=== PATIENT | male | born 1970 | race Caucasian/White ===

== ENCOUNTER 2024-04-25 12:49 | Inpatient (IN) | payer BC, MEDICAID ==
[~2024-04-25] VITALS: Ht 172.7 cm; Wt 77.6 kg
[2024-04-25 13:15] LABS: BASOPHILS # (AUTO) 0.04 K/uL (0.00-0.20); BASOPHILS % (AUTO) 0.7 % (0.0-5.0); EOSINOPHILS # (AUTO) 0.32 K/uL (0.00-0.70); EOSINOPHILS % (AUTO) 5.9 % (0.0-8.0); HEMATOCRIT 44.5 % (42-54); IMMATURE GRANULOCYTE ABSOLUTE 0.01 K/uL (0-1); LYMPHOCYTES # (AUTO) 1.1 K/uL (1.0-4.8); LYMPHOCYTES % (AUTO) 19.3 % (21.0-51.0); MEAN CORPUSCULAR HEMOGLOBIN 28.5 pg (27.0-33.0); MEAN CORPUSCULAR HGB CONC 32.4 g/dL (32.0-36.0); MEAN CORPUSCULAR VOLUME 88.1 fL (79-99); MONOCYTES # (AUTO) 0.4 K/uL (0.1-1.0); MONOCYTES % (AUTO) 7.9 % (3.0-13.0); NEUTROPHILS # (AUTO) 3.6 K/uL (1.8-7.7); PLATELET COUNT (AUTO) 176 K/uL (130-400); RED BLOOD CELL COUNT(AUTO) 5.05 MIL/uL (4.50-6.20); RED CELL DISTRIBUTION WIDTH 14.4 % (11.0-15.5); WHITE BLOOD COUNT (AUTO) 5.5 K/uL (4.8-10.8)
[2024-04-25] MEDS: Solu-medROL 40MG VIAL IVP ONE (13:17)
--- NOTE | 2024-04-25 13:20 | ERN ---
ED Note History of Present Illness Stated Complaint: SHORTNESS OF BREATH Chief Complaint: Shortness of Breath Dictation: 53-year-old male presents to the ED for evaluation of shortness a breath onset 1 week ago. Patient states he has been having difficulty swallowing and voice sounds hoarse. Patient states he has been cleaning out his parents home where there is a lot of dust. Past Medical History Past Medical History: CHF, High Cholesterol, Heart Disease, Hypertension, Other Additional Past Medical Hx: ANGIOEDEMA Surgical History: Other Surgical History Other: LEG AND ARM SX Review of System Dictation Constitutional: Negative for fever,chills, and weight loss Eyes: Negative for injury, pain,redness, and discharge ENT: Positive Difficulty swallowing Negative for injury,pain or swelling Cardiovascular: Negative for chest pain, palpitations, and edema Respiratory: Positive for shortness of breath, negative for cough, and wheezing, Abdomen/GI: Negative for abdominal pain, nausea, vomiting, diarrhea, and constipation Back: Negative for injury and pain : Negative for injury, bleeding and discharge MS/Extremity: Negative for injury and deformity Skin: Negative for rash, and discoloration Neuro: Negative for headache, weakness, numbness, tingling, and seizure Psych: Negative for suicide ideation, homicidal ideation, and hallucinations Initial Vital Sign VS Vital Signs Date Time Temp Pulse Resp B/P (MAP) Pulse Ox O2 Delivery O2 Flow Rate FiO2 04/25/24 12:52 98.8 84 12 155/100 98 Room Air 0 04/25/24 13:02 21 Physical Exam Dictation General: awake, alert, NAD Head/Face: Normocephalic, atraumatic Eyes: PERRL, EOMI, vision at baseline ENT: oral cavity clear, TMs clear, no signs of infection Neck: Trachea midline, supple, no nuchal rigidity Cardiovascular: RRR, normal S1/S2, No MRGs, no JVD Respiratory: CTAB, no respiratory distress, No rales or wheezes Abdomen: Soft, non-tender, non-distended, normal bowel sounds, no guarding or rebound. Skin: Warm, dry, normal turgor, no rash MS/Extremity: Pulses equal, no cyanosis, neurovascular intact, FROM Neuro: COAx4, GCS 15, strength 5/5, CN 2-12 intact, normal cerebellar exam, normal gait, Psych: Normal behavior, mood, and affect normal Results (Laboratory/Radiology) Laboratory/Radiology Laboratory Tests Test 04/25/24 13:08 White Blood Count 5.5 K/uL (4.8-10.8) Red Blood Count 5.05 MIL/uL (4.50-6.20) Hemoglobin 14.4 g/dL (14.0-18.0) Hematocrit 44.5 % (42-54) Mean Corpuscular Volume 88.1 fL (79-99) Mean Corpuscular Hemoglobin 28.5 pg (27.0-33.0) Mean Corpuscular Hemoglobin Concent 32.4 g/dL (32.0-36.0) Red Cell Distribution Width 14.4 % (11.0-15.5) Platelet Count 176 K/uL (130-400) Mean Platelet Volume 9.8 fL (7.5-10.5) Immature Granulocyte % (Auto) 0.2 % (0-1) Neutrophils (%) (Auto) 66.0 % (40.0-77.0) Lymphocytes (%) (Auto) 19.3 % (21.0-51.0) L Monocytes (%) (Auto) 7.9 % (3.0-13.0) Eosinophils (%) (Auto) 5.9 % (0.0-8.0) Basophils (%) (Auto) 0.7 % (0.0-5.0) Neutrophils # (Auto) 3.6 K/uL (1.8-7.7) Lymphocytes # (Auto) 1.1 K/uL (1.0-4.8) Monocytes # (Auto) 0.4 K/uL (0.1-1.0) Eosinophils # (Auto) 0.32 K/uL (0.00-0.70) Basophils # (Auto) 0.04 K/uL (0.00-0.20) Absolute Immature Granulocyte (auto 0.01 K/uL (0-1) Nucleated Red Blood Cells 0.0 % (0.0-0.19) Labs Reviewed?: Yes ED Course ED Course Orders Procedure Category Date Status Time Cbc With Differential LAB 04/25/24 Complete 13:01 Basic Metabolic Panel LAB 04/25/24 In Process 13:01 Troponin I High LAB 04/25/24 In Process Sensitivity 13:01 Chest 1vw RAD 04/25/24 Logged 13:01 12 Lead Ekg Tracing- EKG 04/25/24 Logged Technical 13:01 Methylprednisolone PHA 04/25/24 In Process Succ 40mg (Solu-Medro 13:30 Ipratropium/Albuterol PHA 04/25/24 In Process Neb (Duoneb) 13:30 Current Medications Medications (Trade) Dose Ordered Sig/Crow Route PRN Reason Start Time Stop Time Status Last Admin Dose Admin Albuterol (DUOneb) 1 udvial ONCE ONCE IH 04/25/24 13:30 04/25/24 13:31 Methylprednisolone Sodium Succinate (Solu-medROL 40MG) 125 mg ONCE ONCE IVP 04/25/24 13:30 04/25/24 13:31 04/25/24 13:17 Vital Signs Date Time Temp Pulse Resp B/P (MAP) Pulse Ox O2 Delivery O2 Flow Rate FiO2 04/25/24 13:02 96 16 154/109 98 Room Air* 0 21 04/25/24 12:52 98.8 84 12 155/100 98 Room Air 0 Medical Decision Making MDM MDM: Differential diagnosis: SOB, allergic reaction Previous outside records reviewed: Old ER visits. Need for hospitalization: Patient does not meet criteria for hospitalization. Need for emergency major/minor surgery: No Patient's prior external medical records from other ER visits were reviewed by me as indicated. Prior testing and results from previous visits were reviewed. Prior tests were taken into account with medical decision making and resource utilization, independent historian/historians were used to obtain complete medical history. I independently interpreted the test that were performed, results were reviewed by me and considered findings on radiology if ordered. Medical management and examination interpretation discussions were had by me with other qualified healthcare professionals as indicated for the patient's care. DX & DISP Departure Condition: Stable Referrals: JOANN OLSON MD (PCP) I have reviewed, & agreed with my scribe's, documentation. (Entered by Randolph Sweeney, acting as a scribe for Dr. Arredondo) I personally scribed for LUCIAN ARREDONDO MD ([email or web address]) on 04/25/24 at 13:20. Electronically submitted by Randolph Sweeney ([email or web address]). LUCIAN ARREDONDO MD Apr 25, 2024 13:20
[2024-04-25 13:27] LABS: CREATININE 1.3 mg/dL (0.5-1.3); POTASSIUM 3.7 mmol/L (3.5-5.1)
[2024-04-25 13:57] VITALS: PULSE 88; RESP 18
[2024-04-25] MEDS: IpraTROPium/alBUTERol SULFATE 3 ML SOLUTION IH ONE (13:57)
--- NOTE | 2024-04-25 14:02 | HMCIMG ---
CHEST 1VW HISTORY: Shortness of breath COMPARISON: 03/05/2016 FINDINGS: A frontal projection of the chest was obtained. Mild bilateral pulmonary infiltrates are seen may be related to mild pulmonary vascular congestion with possible superimposed pneumonitis. The heart is enlarged. Degenerative changes are seen. No evidence of aortic calcification is seen. IMPRESSION: 1. Mild bilateral pulmonary infiltrates are seen may be related to mild pulmonary vascular congestion with possible superimposed pneumonitis.
[2024-04-25] MEDS: ondanSETRON 4MG INJ IVP ONE (14:45)
[2024-04-25] MEDS: ondanSETRON 4MG INJ ONE (14:46)
--- NOTE | 2024-04-25 15:08 | EKG ---
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
--- NOTE | 2024-04-25 16:28 | HP ---
[facility] Date of Service: Apr 25, 2024 Time of Service: 16:19 HISTORY OF PRESENT ILLNESS: [ ] admission date: 04/25/24 PCP: no PCP This is a 53-year-old male the presents in ER with chief complaints of shortness a breath associated with atypical chest pain triggered by allergens patient reports he has been cleaning his parents home for several days and reports he has been exposed to heavy dust. Shortness a breath has been going on for a week and gradually worsen today, severity moderate to severe aggravated activity, alleviating factor rest. Associated symptoms chest discomfort, swelling to lower extremities. Patient has not be seen by repairer controller tester's for several years.the patient reports having heart failure will get BNP, no recent echo, Reports having a OK in 2015. Imaging: Mild bilateral pulmonary infiltrates are seen may be related to mild pulmonary vascular congestion with possible superimposed pneumonitis. Labs: Troponin 45; glucose 201 REVIEW OF SYSTEMS CONSTITUTIONAL: Denies fevers, chills, or night sweats. No unintentional weight loss reported. NEUROLOGICAL: Denies headache, amaurosis fugax, motor weakness, sensory deficit, vertigo/spinning sensation, gait abnormalities, or tremors. ENT: No hearing loss, otalgia, otorrhea, rhinitis, rhinorrhea, hoarseness, or sore throat. CARDIOVASCULAR: Denies any exertional angina, dyspnea on exertion, orthopnea, paroxysmal nocturnal dyspnea, palpitations, life-threatening arrhythmias, claudication. PULMONARY: Denies any shortness of breath, cough, phlegm/sputum, hemoptysis, pleuritic chest pain. SLEEP: Denies morning headaches, daytime somnolence or napping. Denies difficulty falling asleep, staying asleep, waking from sleep. Denies knowledge of snoring. GASTROINTESTINAL: Denies any type of dysphagia to either liquids or solids. Denies nausea, vomiting, pyrosis, early satiety, abdominal pain, diarrhea, constipation, or changes in stool consistency or caliber. Denies coffee-ground emesis, hematemesis, hematochezia, or melanotic stools. GENITOURINARY: Denies frequency, urgency, nocturia, hematuria or incontinence (Storage/Irritative symptoms.) Low urinary stream, straining to void, urinary intermittency or hesitancy, splitting of the voiding stream, terminal dribbling. ENDOCRINOLOGIC: Denies polyuria, polydipsia, polyphagia or heat/cold intolerances. HEMATOLOGIC: Denies thrombophilia/previous clots, or coagulopathy/bleeding disorders. ONCOLOGIC: Denies personal history of malignancy. DERMATOLOGIC: Denies rashes or pruritus. PSYCHIATRIC: Denies any suicidal or homicidal ideation. Denies hallucinations. PAST MEDICAL HISTORY: [ ] chf, HTN, HLD, PAST SURGICAL HISTORY: [ ] arm and leg surgery PAST SOCIAL HISTORY: [ ] FAMILY HISTORY: [ ] noncontributory Coded Allergies: amlodipine (Unverified Allergy, Unknown, 04/25/24) REPORTS ANGIOEDEMA. benazepril (Unverified Allergy, Unknown, 04/25/24) REPORTS ANGIOEDEMA. PHYSICAL EXAM GENERAL APPEARANCE: The patient is awake, alert, and oriented, in no acute cardiopulmonary distress. NEUROLOGICAL: Cranial nerves II-XII grossly intact. Motor is 5/5 in bilateral upper and lower extremities proximal to distal. No sensory deficits. HEENT: Face is symmetric. Pupils are equal and reactive. Extraocular movements are intact. NECK: Supple. No JVD. No thyromegaly. No submental, submandibular, pre- /postauricular, occipital or supraclavicular lymphadenopathy. CHEST: Normal chest expansion. No Telemetry. LUNGS: Absence of any rales, rhonchi or any wheezing. CARDIOVASCULAR: Regular. S1 and S2 normal. No appreciable rubs, murmurs or gallops. ABDOMEN: Soft, nontender, and nondistended. There is no rebound, voluntary guarding, or rigidity. : Deferred. No [place]. EXTREMITIES: Non-edematous and not cyanotic. No clubbing. Good capillary refill. SKIN: No skin breakdown. Vital Sign (Last 24 Hours) 04/25/24 04/25/24 04/25/24 12:52 13:02 13:57 Temp 98.8 Pulse 88 Resp 18 B/P (MAP) 154/109 Pulse Ox 98 O2 Delivery Room Air* O2 Flow Rate 0 FiO2 21 LABS: Laboratory: Test 04/25/24 13:08 Range/Units White Blood Count 5.5 4.8-10.8 K/uL Red Blood Count 5.05 4.50-6.20 MIL/uL Hemoglobin 14.4 14.0-18.0 g/dL Hematocrit 44.5 42-54 % Mean Corpuscular Volume 88.1 79-99 fL Mean Corpuscular Hemoglobin 28.5 27.0-33.0 pg Mean Corpuscular Hemoglobin Concent 32.4 32.0-36.0 g/dL Red Cell Distribution Width 14.4 11.0-15.5 % Platelet Count 176 130-400 K/uL Mean Platelet Volume 9.8 7.5-10.5 fL Immature Granulocyte % (Auto) 0.2 0-1 % Neutrophils (%) (Auto) 66.0 40.0-77.0 % Lymphocytes (%) (Auto) 19.3 L 21.0-51.0 % Monocytes (%) (Auto) 7.9 3.0-13.0 % Eosinophils (%) (Auto) 5.9 0.0-8.0 % Basophils (%) (Auto) 0.7 0.0-5.0 % Neutrophils # (Auto) 3.6 1.8-7.7 K/uL Lymphocytes # (Auto) 1.1 1.0-4.8 K/uL Monocytes # (Auto) 0.4 0.1-1.0 K/uL Eosinophils # (Auto) 0.32 0.00-0.70 K/uL Basophils # (Auto) 0.04 0.00-0.20 K/uL Absolute Immature Granulocyte (auto 0.01 0-1 K/uL Nucleated Red Blood Cells 0.0 0.0-0.19 % Sodium Level 138 136-145 mmol/L Potassium Level 3.7 3.5-5.1 mmol/L Chloride Level 102 101-111 mmol/L Carbon Dioxide Level 28 21-32 mmol/L Blood Urea Nitrogen 14 7-18 mg/dL Creatinine 1.3 0.5-1.3 mg/dL Glomerular Filtration Rate Calc 65 >90 mL/min Random Glucose 201 H 70-105 mg/dL Total Calcium 8.9 8.5-10.1 mg/dL Troponin I High Sensitivity 45 4-75 ng/L Current Medications Medications (Trade) Dose Ordered Sig/Crow Route PRN Reason Start Time Stop Time Status Last Admin Dose Admin Acetaminophen (TYLenol 325MG TAB) 650 mg Q4H PRN PO TEMPERATURE GREATER THAN 101.5 04/25/24 16:30 05/25/24 16:29 UNV Albuterol (DUOneb) 1 UDVIAL Q6H PRN IH SHORTNESS OF BREATH 04/25/24 16:30 05/25/24 16:29 UNV Aspirin (Aspirin 81mg Ec Tab) 81 mg DAILY PO 04/26/24 09:00 05/26/24 08:59 UNV Famotidine (Pepcid 20mg Tab) 20 mg BID PO 04/25/24 21:00 05/25/24 20:59 UNV Methylprednisolone Sodium Succinate (Solu-medROL 40MG) 40 mg Q8H IVP 04/25/24 16:30 05/25/24 16:29 UNV Ondansetron HCl (zoFRAN 4MG INJ) 4 mg Q6H PRN IVP NAUSEA/VOMITING 04/25/24 16:30 05/25/24 16:29 UNV DIAGNOSTICS / RADIOLOGY: [ ] REASON: SOB ORDERING PHYSICIAN: LUCIAN KNOX MD PROCEDURE: CXR1VW - CHEST 1VW CHEST 1VW HISTORY: Shortness of breath COMPARISON: 03/05/2016 FINDINGS: A frontal projection of the chest was obtained. Mild bilateral pulmonary infiltrates are seen may be related to mild pulmonary vascular congestion with possible superimposed pneumonitis. The heart is enlarged. Degenerative changes are seen. No evidence of aortic calcification is seen. IMPRESSION: 1. Mild bilateral pulmonary infiltrates are seen may be related to mild pulmonary vascular congestion with possible superimposed pneumonitis. ASSESSMENT: Acute Resp failure with hypoxia POA suspected bronchitis POA Atypical chest pain POA suspecting costochondritis POA uncontrolled HTN POA Active depression POA Chronic problems: HTN, HLD CHF: not on current medication management only baby asa take it when he remembers. PLAN: [ ] admit to [facility] investigations consultant: Pulmologist: repairer controller tester diet: regular ABT's; Azithromycin 500 mg IV daily Solumedrol 40 mg IV every 12 hrs ; DuoNeb as needed Test: Echo CE; Troponin x2; asa 81 mg po daily, statin atorvastatin 10 mg po hs; Nitroglycerin 0.4 mg SL as directed HTN: Lisinopril 20 mg po daily first dose now Labs: TSH, cbc, cmp, mag+: BNP now DVT-GI ppx replace electrolytes as needed basis per protocol RN pending to reviewed home medications PT services to eval and treat. PRN: MEDICATIONS Tylenol 650 mg po every 4 hrs for fever Zofran 4 mg IV every 6 hrs for n/v Hydralazine 10 mg IV every 4 hrs systolic pressure > 160 Supportive measures: DVT ppx, GI ppx all questions answered time spent: > 35 min Supervising MD: Dr. Childers c/d ATTESTATION BY PHYSICIAN I have seen and examined the patient. I reviewed the documentation, medical decision making, and treatment plan as noted by the mid-level provider above. I agree with the findings and plan of care. HARINDER CHILDERS MD, ELIZABETH NP Apr 25, 2024 16:28
[2024-04-25] MEDS ORDERED: PoTASSium chloRIDE 20MEQ ER 20 MEQ ERTAB PO PRN (16:30)
[2024-04-25] MEDS ORDERED: ondanSETRON 4MG INJ IVP PRN (16:30)
[2024-04-25] MEDS ORDERED: PoTASSium chl 10% ELIXIR 20MEQ 20 MEQ/15 ML UDCUP PO PRN (16:30)
[2024-04-25] MEDS ORDERED: Solu-medROL 40MG VIAL IVP SCH (16:30)
[2024-04-25] MEDS ORDERED: PoTASSium chloRIDE 20MEQ/100ML 100 ML IV PRN (16:30)
[2024-04-25] MEDS: INSULIN humuLIN R 100 UNIT/ML 3ML SQ SCH (16:30)
[2024-04-25] MEDS ORDERED: LISINOPRIL 20 MG TABLET PO ONE (17:00)
[2024-04-25] MEDS ORDERED: NITROGLYCERIN 0.4 MG SL TAB SL PRN (17:00)
[2024-04-25] MEDS ORDERED: hydrALAZine 20MG/ML VIAL IV PRN (17:00)
[2024-04-25] MEDS: AZITHROMYCIN 500MG+NS 250ML 250 ML IVPB SCH (17:22)
[2024-04-25] MEDS: THIAMINE HCL 100 MG TABLET PO ONE (17:29)
[2024-04-25 17:35] LABS: CHOLESTEROL 92 mg/dL (<200); HDL CHOLESTEROL 34 mg/dL (29-71); LDL DIRECT 52 mg/dL (0-99); TRIGLYCERIDES 57 mg/dL (30-200)
[2024-04-25 17:59] LABS: APPEARANCE,URINE CLEAR (CLEAR); BILIRUBIN,URINE NEGATIVE (NEGATIVE); COLOR,URINE LIGHT-YELLOW (YELLOW); GLUCOSE, URINE (UA) NEGATIVE (NEGATIVE); KETONES,URINE NEGATIVE (NEGATIVE); LEUKOCYTE ESTERASE ,URINE NEGATIVE Leu/uL (NEGATIVE); NITRATE,URINE NEGATIVE (NEGATIVE); OCCULT BLOOD,URINE NEGATIVE (NEGATIVE); PH,URINE 5.5 (5.0-8.0); PROTEIN,URINE NEGATIVE (NEGATIVE); UROBILINOGEN,URINE 0.2 mg/dL (0.2-1.0)
[2024-04-25 18:00] LABS: ADD UA MICROSCOPIC NO
[2024-04-25 18:13] LABS: INFLUENZA TYPE A Negative For Type A (NEGATIVE); INFLUENZA TYPE B Negative For Type B (NEGATIVE)
[2024-04-25] MEDS: atorVAStatin 10 MG TABLET PO SCH (20:01)
[2024-04-25] MEDS: monteLUKAST sodIUM 10 MG TAB PO SCH (20:01)
[2024-04-25] MEDS: FAMOTIDINE 20MG TAB PO SCH (20:01)
[2024-04-25] MEDS: Solu-medROL 40MG VIAL IVP SCH (20:09)
--- NOTE | 2024-04-25 21:46 | CONS ---
[facility] CONSULTATION NOTE Date Patient Seen: Apr 25, 2024 Time of Visit: 21:45 Supervising Physician: Dr Rosario Carrasco Reason for Consultation: ARF/COPD in acute exacerbation Consulting Care Physician: Dr Wilcox Outpatient Specialists: [ ] Inpatient Consults: [ ] PROBLEM LIST: Acute hypoxic respiratory failure, POA Community-acquired pneumonia, POA Possible congestive heart failure, BNP is 2100, EKG showed left atrial enlargement with left ventricular hypertrophy COPD in acute exacerbation, POA Hypertension, POA DM type 2, with hyperglycemia, POA History of angioedema PLAN: Admit per primary Continue antibiotics Continue scheduled neb treatment Pulmonary toilet Add ceftriaxone 1 g Q24 hours Incentive spirometry Recommend 2D echo Treat fever aggressively Monitor temperature curve Smoking cessation Initiate CIWA protocol Rest of plan care of primary HPI: 53-year-old male with past medical history of hypertension, COPD, angioedema, DM type 2 who presented to ED with complaint of worsening shortness of breath x1 week and found to have possible community-acquired pneumonia, COPD in acute exacerbation, possible underlying CHF, and acute hypoxic respiratory failure. Patient was seen and examined in ED with no relatives present at bedside. Apparently patient was brought in by a friend after patient had worsening shortness of breath, with associated chest tightness and cough. In ED stat chest x-ray was done and showed bilateral pulmonary infiltrates concerning for possible pneumonia. CBC is unremarkable for any acute infection or anemia, his BNP is 2100, chemistry unremarkable for any electrolyte or kidney dysfunction, COVID and flu test were negative. In ED patient was initiated on antibiotic therapy, neb treatment, and started steroid. [facility] was consulted for evaluation of COPD/acute respiratory failure. At present patient is currently hemodynamically stable, on O2 therapy the appropriate oxygen saturation, able to answer questions appropriately, visibly short of breath during conversation. Denies any headache, confusion, fever, flu-like symptoms, abdominal pain, however he is complaining chest tightness and bilateral lower extremity swelling. Patient has history of smoking, drinks occasionally and denies illicit drug use. PAST MEDICAL HX: see above PAST SURGICAL HX: noncontributory SOCIAL HISTORY: See HPI Coded Allergies: amlodipine (Unverified Allergy, Unknown, 04/25/24) REPORTS ANGIOEDEMA. benazepril (Unverified Allergy, Unknown, 04/25/24) REPORTS ANGIOEDEMA. REVIEW OF SYSTEMS: 12 point ROS reviewed with patient. Pertinent positives mentioned above. Otherwise negative. PHYSICAL EXAM: GENERAL: alert, weak, awake oriented x 3, mildly tachypneic on O2 therapy HEENT: EOMI, Sclera non icteric, moist mucosa NECK: Supple, no JVD, trachea midline LUNGS: Audible wheezing bilaterally HEART: Regular rate and rhythm. Normal S1 and S2, without murmurs ABD: Abdomen soft, nontender. Bowel sounds present EXT: No clubbing cyanosis 2+ pitting edema bilateral lower extremity NEURO: Alert and oriented to person, follows commands Vital Signs (last 8hr) Date Time Temp Pulse Resp B/P (MAP) Pulse Ox O2 Delivery O2 Flow Rate FiO2 04/25/24 19:53 98 18 144/95 96 Nasal Cannula* 2 28 04/25/24 18:18 97.9 96 14 132/95 97 Room Air* 2 N/A Nasal Cannula* 04/25/24 15:00 97.2 82 18 146/90 97 Room Air* 0 21 04/25/24 13:57 88 18 LABS: Hematology Labs: Test 04/25/24 13:08 Range/Units White Blood Count 5.5 4.8-10.8 K/uL Red Blood Count 5.05 4.50-6.20 MIL/uL Hemoglobin 14.4 14.0-18.0 g/dL Hematocrit 44.5 42-54 % Mean Corpuscular Volume 88.1 79-99 fL Mean Corpuscular Hemoglobin 28.5 27.0-33.0 pg Mean Corpuscular Hemoglobin Concent 32.4 32.0-36.0 g/dL Red Cell Distribution Width 14.4 11.0-15.5 % Platelet Count 176 130-400 K/uL Mean Platelet Volume 9.8 7.5-10.5 fL Immature Granulocyte % (Auto) 0.2 0-1 % Neutrophils (%) (Auto) 66.0 40.0-77.0 % Lymphocytes (%) (Auto) 19.3 L 21.0-51.0 % Monocytes (%) (Auto) 7.9 3.0-13.0 % Eosinophils (%) (Auto) 5.9 0.0-8.0 % Basophils (%) (Auto) 0.7 0.0-5.0 % Neutrophils # (Auto) 3.6 1.8-7.7 K/uL Lymphocytes # (Auto) 1.1 1.0-4.8 K/uL Monocytes # (Auto) 0.4 0.1-1.0 K/uL Eosinophils # (Auto) 0.32 0.00-0.70 K/uL Basophils # (Auto) 0.04 0.00-0.20 K/uL Absolute Immature Granulocyte (auto 0.01 0-1 K/uL Nucleated Red Blood Cells 0.0 0.0-0.19 % Chemistry Labs: Test 04/25/24 21:30 04/25/24 18:50 04/25/24 13:08 Range/Units Whole Blood Glucose 262 #H 70-110 MG/DL Troponin I High Sensitivity 35 4-75 ng/L Sodium Level 138 136-145 mmol/L Potassium Level 3.7 3.5-5.1 mmol/L Chloride Level 102 101-111 mmol/L Carbon Dioxide Level 28 21-32 mmol/L Blood Urea Nitrogen 14 7-18 mg/dL Creatinine 1.3 0.5-1.3 mg/dL Glomerular Filtration Rate Calc 65 >90 mL/min Random Glucose 201 H 70-105 mg/dL Total Calcium 8.9 8.5-10.1 mg/dL B-Type Natriuretic Peptide 2100 H 0-100 pg/mL Triglycerides Level 57 30-200 mg/dL Cholesterol Level 92 <200 mg/dL LDL Cholesterol 52 0-99 mg/dL HDL Cholesterol 34 29-71 mg/dL DIAGNOSTICS / RADIOLOGY RESULTS: CHEST 1VW HISTORY: Shortness of breath COMPARISON: 03/05/2016 FINDINGS: A frontal projection of the chest was obtained. Mild bilateral pulmonary infiltrates are seen may be related to mild pulmonary vascular congestion with possible superimposed pneumonitis. The heart is enlarged. Degenerative changes are seen. No evidence of aortic calcification is seen. IMPRESSION: 1. Mild bilateral pulmonary infiltrates are seen may be related to mild pulmonary vascular congestion with possible superimposed pneumonitis. PLAN NEURO: Minimize central acting medications as possible. Maintain fall precautions, adequate lighting during the day PULMONARY: Supplemental 02 as needed. Maintain aspiration precautions at all times CARDIOVASCULAR: Follow hemodynamics. Vital signs per facility protocol GI & NUTRITION: Continue with nutritional support. Continue stool softeners and laxatives as needed. KIDNEYS & ELECTROLYTES: Strict monitoring of intake, output and overall fluid balance. Avoid nephrotoxic medications to the extent possible. Medications to be dosed according to renal function. Monitor electrolytes and replace as needed ENDOCRINE: Maintain blood glucose between 100-180 at all times. Hypoglycemia protocol in place INFECTIOUS DISEASE: Trend temperature, WBC and procalcitonin level Follow cultures, deescalate antibiotics as soon as possible. Panculture if new onset fever ONCOLOGY/HEMATOLOGY/COAGULATION: Monitor for s/s of bleeding Monitor hemoglobin, coagulation studies as needed SKIN: Pressure ulcer prevention per facility protocol Specialty mattress ORTHO/REHAB: Continue PT/OT Prophylaxis: Continue GI and DVT prophylaxis Code Status: Full Resuscitation Disposition: TBD Other: Total patient care time exceeds 35 minutes excluding all procedures. Supervising Physician: FRANCISCO Vasquez AGACNP Apr 25, 2024 21:46
[2024-04-25] MEDS: cefTRIAXone 1G VIAL IVPB SCH (22:56)
[2024-04-26] VITALS (11 sets, daily range): BP systolic 120–127; BP diastolic 78–82; PULSE 70–100; RESP 16–20; TEMP 97.9–98.4; O2SAT 95–100
[2024-04-26] MEDS: IpraTROPium/alBUTERol SULFATE 3 ML SOLUTION IH PRN (07:03)
[2024-04-26] MEDS: BUDESONIDE 0.5 MG/2 ML INH IH SCH (07:03)
[2024-04-26 07:07] LABS: BASOPHILS # (AUTO) 0.01 K/uL (0.00-0.20); BASOPHILS % (AUTO) 0.2 % (0.0-5.0); HEMATOCRIT 41.6 % (42-54); IMMATURE GRANULOCYTE ABSOLUTE 0.02 K/uL (0-1); LYMPHOCYTES # (AUTO) 0.3 K/uL (1.0-4.8); LYMPHOCYTES % (AUTO) 4.8 % (21.0-51.0); MEAN CORPUSCULAR HEMOGLOBIN 27.6 pg (27.0-33.0); MEAN CORPUSCULAR VOLUME 86.3 fL (79-99); MONOCYTES # (AUTO) 0.1 K/uL (0.1-1.0); MONOCYTES % (AUTO) 1.3 % (3.0-13.0); NEUTROPHILS # (AUTO) 5.9 K/uL (1.8-7.7); NEUTROPHILS % (AUTO) 93.4 % (40.0-77.0); PLATELET COUNT (AUTO) 191 K/uL (130-400); RED BLOOD CELL COUNT(AUTO) 4.82 MIL/uL (4.50-6.20); RED CELL DISTRIBUTION WIDTH 14.4 % (11.0-15.5); WHITE BLOOD COUNT (AUTO) 6.3 K/uL (4.8-10.8)
[2024-04-26 07:35] LABS: BILIRUBIN,TOTAL 0.6 mg/dL (0.2-1.0); CREATININE 1.5 mg/dL (0.5-1.3); MAGNESIUM 1.8 mg/dL (1.80-2.40); THYROID STIMULATING HORMONE 1.86 uIU/mL (0.36-3.74); TOTAL PROTEIN, SERUM 6.9 g/dL (6.0-8.3)
[2024-04-26] MEDS ORDERED: LISINOPRIL 20 MG TABLET PO SCH (09:00)
[2024-04-26] MEDS: amLODIPine 5 MG TAB PO SCH (09:55)
[2024-04-26] MEDS: ASPIRIN 81 MG EC TAB PO SCH (09:55)
[2024-04-26] MEDS: THIAMINE HCL 100 MG TABLET PO SCH (09:56)
[2024-04-26] MEDS: cefTRIAXone 1G VIAL IVPB SCH (09:56)
--- NOTE | 2024-04-26 09:56 | HMCIMG ---
CT CHEST W/O CONTRAST HISTORY: sob TECHNIQUE: CT CHEST W/O CONTRAST. Coronal and sagittal reformats were obtained. CT was performed with one or more of the following dose reduction techniques: Automated exposure control, adjustment of the mA and/or kV according to the patient's size, or use of the iterative reconstruction technique. FINDINGS: The noncontrast nature this study limits evaluation of the mediastinal structures. Small left and [id number] right pleural effusion is seen with bilateral lower lobe atelectasis. There is cardiomegaly with scattered bilateral groundglass opacities concerning for early pulmonary edema. Trace of pericardial effusion is seen. Mildly prominent mediastinal lymph nodes, nonspecific. There is atherosclerotic changes of the aorta and coronary arteries. Gallstones are seen in the upper abdomen. Degenerative changes of the spine are noted. IMPRESSION: 1. Small left and [id number] right pleural effusion is seen with bilateral lower lobe atelectasis. 2. There is cardiomegaly with scattered bilateral groundglass opacities concerning for early pulmonary edema.
[2024-04-26] MEDS: LACTATED RINGERS 1000ML 1,000 ML IV SCH (09:57)
[2024-04-26] MEDS: furoSEMIDE 20MG VIAL IV SCH (09:57)
[2024-04-26 10:50] LABS: AMPHET/METH SCREEN,URINE NEGATIVE (NEGATIVE); BARBITURATE SCREEN, URINE NEGATIVE (NEGATIVE); BENZODIAZEPINES SCREEN,URINE NEGATIVE (NEGATIVE); CANNABINOID SCREEN,URINE NEGATIVE (NEGATIVE); COCAINE SCREEN,URINE NEGATIVE (NEGATIVE); OPIATE SCREEN,URINE NEGATIVE (NEGATIVE); PHENCYCLIDINE SCREEN,URINE NEGATIVE (NEGATIVE)
--- NOTE | 2024-04-26 11:05 | PN ---
[facility] PROGRESS NOTE Date of Service: Apr 26, 2024 Time of Service: 10:52 SUBJECTIVE: [ ] admission date: 04/25/24 PCP: no PCP This is a 53-year-old male the presents in ER with chief complaints of shortness a breath associated with atypical chest pain triggered by allergens patient reports he has been cleaning his parents home for several days and reports he has been exposed to heavy dust. Shortness a breath has been going on for a week and gradually worsen today, severity moderate to severe aggravated activity, alleviating factor rest. Associated symptoms chest discomfort, swelling to lower extremities. Patient has not be seen by proof reader's for several years.the patient reports having heart failure will get BNP, no recent echo, Reports having [facility]. 04/26/24: Patient is seen and examined with Dr. Childers patient remains in ED 14, will be transfer to Med surg. Patient's vascular congested :fluid overload BNP: 2100 patient will be started on Lasix 20 mg IV b.i.d.. 2D echo pending proof reader consulted strep test negative. REVIEW OF SYSTEMS CONSTITUTIONAL: Denies fevers, chills, or night sweats. No unintentional weight loss reported. NEUROLOGICAL: Denies headache, amaurosis fugax, motor weakness, sensory deficit, vertigo/spinning sensation, gait abnormalities, or tremors. ENT: No hearing loss, otalgia, otorrhea, rhinitis, rhinorrhea, hoarseness, or sore throat. CARDIOVASCULAR: Denies any exertional angina, dyspnea on exertion, orthopnea, paroxysmal nocturnal dyspnea, palpitations, life-threatening arrhythmias, claudication. PULMONARY: Denies any shortness of breath, cough, phlegm/sputum, hemoptysis, pleuritic chest pain. SLEEP: Denies morning headaches, daytime somnolence or napping. Denies difficulty falling asleep, staying asleep, waking from sleep. Denies knowledge of snoring. GASTROINTESTINAL: Denies any type of dysphagia to either liquids or solids. Denies nausea, vomiting, pyrosis, early satiety, abdominal pain, diarrhea, constipation, or changes in stool consistency or caliber. Denies coffee-ground emesis, hematemesis, hematochezia, or melanotic stools. GENITOURINARY: Denies frequency, urgency, nocturia, hematuria or incontinence (Storage/Irritative symptoms.) Low urinary stream, straining to void, urinary intermittency or hesitancy, splitting of the voiding stream, terminal dribbling. ENDOCRINOLOGIC: Denies polyuria, polydipsia, polyphagia or heat/cold intolerances. HEMATOLOGIC: Denies thrombophilia/previous clots, or coagulopathy/bleeding disorders. ONCOLOGIC: Denies personal history of malignancy. DERMATOLOGIC: Denies rashes or pruritus. PSYCHIATRIC: Denies any suicidal or homicidal ideation. Denies hallucinations. PHYSICAL EXAM GENERAL APPEARANCE: The patient is awake, alert, and oriented, in no acute cardiopulmonary distress. NEUROLOGICAL: Cranial nerves II-XII grossly intact. Motor is 5/5 in bilateral upper and lower extremities proximal to distal. No sensory deficits. HEENT: Face is symmetric. Pupils are equal and reactive. Extraocular movements are intact. NECK: Supple. No JVD. No thyromegaly. No submental, submandibular, pre- /postauricular, occipital or supraclavicular lymphadenopathy. CHEST: Normal chest expansion. No Telemetry. LUNGS: Absence of any rales, rhonchi or any wheezing. CARDIOVASCULAR: Regular. S1 and S2 normal. No appreciable rubs, murmurs or gallops. ABDOMEN: Soft, nontender, and nondistended. There is no rebound, voluntary guarding, or rigidity. : Deferred. No [place]. EXTREMITIES: Non-edematous and not cyanotic. No clubbing. Good capillary refill. SKIN: No skin breakdown. Vital Signs (last 8hr) Date Time Temp Pulse Resp B/P (MAP) Pulse Ox O2 Delivery O2 Flow Rate FiO2 04/26/24 10:10 98.1 90 19 128/81 97 Nasal Cannula* 2 04/26/24 08:00 98.1 94 16 130/84 97 Nasal Cannula* 2 04/26/24 07:03 70 20 04/26/24 06:59 90 20 N/Cannula Low lpm 2.0 04/26/24 06:56 91 18 121/79 97 Nasal Cannula* 2 04/26/24 03:55 84 20 138/87 99 Nasal Cannula* 2 04/26/24 03:49 84 20 LABS: Laboratory: Test 04/26/24 06:53 04/25/24 21:30 04/25/24 19:07 04/25/24 17:40 Range/Units White Blood Count 6.3 4.8-10.8 K/uL Red Blood Count 4.82 4.50-6.20 MIL/uL Hemoglobin 13.3 L 14.0-18.0 g/dL Hematocrit 41.6 L 42-54 % Mean Corpuscular Volume 86.3 79-99 fL Mean Corpuscular Hemoglobin 27.6 27.0-33.0 pg Mean Corpuscular Hemoglobin Concent 32.0 32.0-36.0 g/dL Red Cell Distribution Width 14.4 11.0-15.5 % Platelet Count 191 130-400 K/uL Mean Platelet Volume 9.5 7.5-10.5 fL Immature Granulocyte % (Auto) 0.3 0-1 % Neutrophils (%) (Auto) 93.4 H 40.0-77.0 % Lymphocytes (%) (Auto) 4.8 L 21.0-51.0 % Monocytes (%) (Auto) 1.3 L 3.0-13.0 % Eosinophils (%) (Auto) 0.0 0.0-8.0 % Basophils (%) (Auto) 0.2 0.0-5.0 % Neutrophils # (Auto) 5.9 1.8-7.7 K/uL Lymphocytes # (Auto) 0.3 L 1.0-4.8 K/uL Monocytes # (Auto) 0.1 0.1-1.0 K/uL Eosinophils # (Auto) 0.00 0.00-0.70 K/uL Basophils # (Auto) 0.01 0.00-0.20 K/uL Absolute Immature Granulocyte (auto 0.02 0-1 K/uL Nucleated Red Blood Cells 0.0 0.0-0.19 % White Cell Morphology Comment See comments Sodium Level 143 136-145 mmol/L Potassium Level 5.0 3.5-5.1 mmol/L Chloride Level 107 101-111 mmol/L Carbon Dioxide Level 27 21-32 mmol/L Blood Urea Nitrogen 20 H 7-18 mg/dL Creatinine 1.5 H 0.5-1.3 mg/dL Glomerular Filtration Rate Calc 55 >90 mL/min Random Glucose 176 H 70-105 mg/dL Total Calcium 8.9 8.5-10.1 mg/dL Magnesium Level 1.80 1.80-2.40 mg/dL Total Bilirubin 0.6 0.2-1.0 mg/dL Aspartate Amino Transf (AST/SGOT) 20 10-37 U/L Alanine Aminotransferase (ALT/SGPT) 23 12-78 U/L Alkaline Phosphatase 91 50-136 U/L Troponin I High Sensitivity 26 4-75 ng/L C-Reactive Protein, Quantitative 28.30 H 0.5-3.0 mg/L Total Protein 6.9 6.0-8.3 g/dL Albumin 3.0 L 3.5-5.0 g/dL Procalcitonin < 0.05 L 0.05-0.5 ng/mL Thyroid Stimulating Hormone (TSH) 1.86 0.36-3.74 uIU/mL Whole Blood Glucose 262 #H 70-110 MG/DL Group A Streptococcus Rapid NEGATIVE NEGATIVE Urine Color LIGHT-YELLOW YELLOW Urine Appearance CLEAR CLEAR Urine pH 5.5 5.0-8.0 Urine Specific Lee 1.008 1.001-1.031 Urine Protein NEGATIVE NEGATIVE mg/dL Urine Glucose (UA) NEGATIVE NEGATIVE mg/dL Urine Ketones NEGATIVE NEGATIVE mg/dL Urine Occult Blood NEGATIVE NEGATIVE Urine Nitrate NEGATIVE NEGATIVE Urine Bilirubin NEGATIVE NEGATIVE mg/dL Urine Urobilinogen 0.2 0.2-1.0 mg/dL Urine Leukocyte Esterase NEGATIVE NEGATIVE Syeda/uL Urine Opiates Screen NEGATIVE NEGATIVE Urine Barbiturates Screen NEGATIVE NEGATIVE Urine Phencyclidine Screen NEGATIVE NEGATIVE Urine Amphetamines Screen NEGATIVE NEGATIVE Urine Benzodiazepines Screen NEGATIVE NEGATIVE Urine Cocaine Screen NEGATIVE NEGATIVE Urine Marijuana (THC) Screen NEGATIVE NEGATIVE Influenza Type A Antigen Negative For Type A NEGATIVE Influenza Type B Antigen Negative For Type B NEGATIVE Test 04/25/24 13:08 Range/Units B-Type Natriuretic Peptide 2100 H 0-100 pg/mL Triglycerides Level 57 30-200 mg/dL Cholesterol Level 92 <200 mg/dL LDL Cholesterol 52 0-99 mg/dL HDL Cholesterol 34 29-71 mg/dL Current Medications Medications (Trade) Dose Ordered Sig/Crow Route PRN Reason Start Time Stop Time Status Last Admin Dose Admin Acetaminophen (TYLenol 325MG TAB) 650 mg Q4H PRN PO TEMPERATURE GREATER THAN 101.5 04/25/24 16:30 05/25/24 16:29 Albuterol (DUOneb) 1 UDVIAL Q6H PRN IH SHORTNESS OF BREATH 04/25/24 16:30 05/25/24 16:29 04/26/24 07:03 1 UDVIAL Amlodipine Besylate (NorvASC 5MG TAB) 5 mg DAILY PO 04/26/24 09:00 05/26/24 08:59 04/26/24 09:55 5 MG Aspirin (Aspirin 81mg Ec Tab) 81 mg DAILY PO 04/26/24 09:00 05/26/24 08:59 04/26/24 09:55 81 MG Atorvastatin Calcium (LIPItor 10MG) 10 mg HS PO 04/25/24 21:00 05/25/24 20:59 04/25/24 20:01 10 MG Azithromycin 250 ml @ 250 mls/hr Q24H IVPB 04/25/24 16:30 05/05/24 16:29 04/25/24 17:22 250 MLS/HR Budesonide (Pulmicort 0.5 Mg/2ml) 0.5 mg BIDRESP IH 04/26/24 06:00 05/26/24 05:59 04/26/24 07:03 0.5 MG Ceftriaxone Sodium (ROCEphine 1G INJ) 1 gm Q12H IVPB 04/26/24 08:00 05/05/24 22:29 04/26/24 09:56 1 GM Ceftriaxone Sodium (ROCEphine 1G INJ) 1 gm Q24H IVPB 04/25/24 22:30 04/26/24 07:58 DC 04/25/24 22:56 1 GM Famotidine (Pepcid 20mg Tab) 20 mg BID PO 04/25/24 21:00 05/25/24 20:59 04/26/24 09:55 20 MG Furosemide (LASix 20MG VIAL) 20 mg Q12H IV 04/26/24 09:00 05/26/24 08:59 04/26/24 09:57 20 MG Hydralazine HCl (APRESOLine 20MG INJ) 5 mg Q4H PRN IV ADMINISTER FOR SBP > 160 04/25/24 17:00 05/25/24 16:59 Insulin Human Regular (humuLIN R 100 UNIT/ML 3ML) INSULIN SLIDING SCAL... ACHS SQ 04/25/24 16:30 05/25/24 16:29 04/26/24 09:55 4 UNIT Lactated Ringer's 1,000 ml @ 75 mls/hr [id number] IV 04/26/24 09:00 05/26/24 08:59 04/26/24 09:57 75 MLS/HR Lisinopril (Prinivil 20mg) 20 mg DAILY PO 04/26/24 09:00 04/25/24 19:43 DC Magnesium Sulfate 50 ml @ 0 mls/hr PROTOCOL PRN IV low mag level 04/25/24 16:30 05/25/24 16:29 Methylprednisolone Sodium Succinate (Solu-medROL 40MG) 40 mg Q12H9 IVP 04/25/24 21:00 05/25/24 20:59 04/26/24 09:56 40 MG Methylprednisolone Sodium Succinate (Solu-medROL 40MG) 40 mg Q8H IVP 04/25/24 16:30 04/25/24 16:31 DC Montelukast Sodium (SinguLAIR) 10 mg HS PO 04/25/24 21:00 05/25/24 20:59 04/25/24 20:01 10 MG Nitroglycerin (Nitrostat) 0.4 mg AD PRN SL CHEST PAIN 04/25/24 17:00 05/25/24 16:59 Ondansetron HCl (zoFRAN 4MG INJ) 4 mg Q6H PRN IVP NAUSEA/VOMITING 04/25/24 16:30 05/25/24 16:29 Potassium Chloride 100 ml @ 100 mls/hr AD PRN IV POTASSIUM PROTOCOL 04/25/24 16:30 05/25/24 16:29 Potassium Chloride (K-Dur/Klor-Con 20meq) 20 meq AD PRN PO POTASSIUM PROTOCOL 04/25/24 16:30 05/25/24 16:29 Potassium Chloride (KCl 10% Elixir 20meq/15ml) 20 meq AD PRN PO POTASSIUM PROTOCOL 04/25/24 16:30 05/25/24 16:29 Thiamine HCl (Vitamin B-1) 100 mg DAILY PO 04/26/24 09:00 05/26/24 08:59 04/26/24 09:56 100 MG DIAGNOSTICS / RADIOLOGY: [ ] ASSESSMENT: Acute Resp failure with hypoxia POA Small left and [id number] right pleural effusion i suspected bronchitis POA acute chf exacerbation unknown EF% POA Atypical chest pain POA suspecting costochondritis POA uncontrolled HTN POA Active depression POA KIRAN ATN Chronic problems: HTN, HLD CHF: not on current medication management only baby asa take it when he remembers. PLAN: [ ] admit to [facility] reimbursement consultant: Pulmologist: proof reader diet: regular ABT's; Azithromycin 500 mg IV daily and Rocephin 1 gm Q 12hr Solumedrol 40 mg IV every 12 hrs ; DuoNeb as needed Test: Echo to eval LV function. CT chest without Contrast noted strep negative fluid restriction 1500 ml/hr, Lasix 20 mg iV bid CE; Troponin x2 negative ; asa 81 mg po daily, statin atorvastatin 10 mg po hs; Nitroglycerin 0.4 mg SL as directed HTN:stop lisinopril started on Norvasc 5 mg po daily, DVT-GI ppx replace electrolytes as needed basis per protocol RN pending to reviewed home medications PT services to eval and treat. PRN: MEDICATIONS Tylenol 650 mg po every 4 hrs for fever Zofran 4 mg IV every 6 hrs for n/v Hydralazine 10 mg IV every 4 hrs systolic pressure > 160 Supportive measures: DVT ppx, GI ppx all questions answered Supervising MD: Dr. Childers c/d agreed with plan of care. ATTESTATION BY PHYSICIAN I have seen and examined the patient. I reviewed the documentation, medical decision making, and treatment plan as noted by the mid-level provider above. I agree with the findings and plan of care. HARINDER CHILDERS MD, ELIZABETH NP Apr 26, 2024 11:05
--- NOTE | 2024-04-26 14:08 | PN ---
[facility] PROGRESS NOTE Date Patient Seen: Apr 26, 2024 Time of Visit: 14:08 Supervising Physician: Quinten Oglesby MD Consulting Care Physician: Dr Wilcox Outpatient Specialists: [ ] Inpatient Consults: [ ] PROBLEM LIST: Acute hypoxic respiratory failure, POA Community-acquired pneumonia, POA CURB 65 1 (Low risk group: 2.7% 30-day mortality) Bilateral small pleural effusion with bilateral lobe atelectasis, POA Acute On Chronic Systolic Heart Failure With ICM Ef Of 25-30%, POA ON 2D ECHO 04/26/24 COPD in acute exacerbation, POA Hypertension, POA DM type 2, with hyperglycemia, POA History of angioedema with benazepril (avoid DIXIE inhibitors and ARBS) PLAN: Continue scheduled neb treatment Pulmonary toilet Continue Zosyn and doxycycline. Incentive spirometry 2D echo 25-30% EF ICM Treat fever aggressively Monitor temperature curve Smoking cessation Initiate CIWA protocol Rest of plan care of primary Telemetry monitoring Continue Lasix 20 mg IV q.12 hours Avoid DIXIE inhibitors and ARBS INTERVAL HISTORY: Patient awake alert and oriented x3. Currently on 2 L via nasal cannula saturating 97% hemodynamically stable respiratory rate 19 unlabored he has been afebrile with a T-max of 98.4 and a T low of 97.1. 2D echo reading with normal left ventricular wall thickness, EF is 20 53%. Right ventricle moderately dilated. Left ventricle is severely dilated. Hypokinetic anterior septal and apical drummond. Global strain of -8%. There is mild mitral valve regurgitation noted. RVSP is 41.1. Neutrophils increased to 93.4 today. Otherwise CBC similar to yesterday. BUN 20 creatinine 1.5 with a GFR of 55. Glucose 176 mg/dL CRP 28.3 albumin 3.0 procalcitonin less than 0.05. Influenza negative group strep negative pending COVID-19 test. Antibiotics changed to Zosyn to cover for possible Pseudomonas empirically due to his chronic history of lung disease. Added doxycycline and stopped azithromycin in order to cover for community-acquired pneumonia and prevent tachyarrhythmias given his high-risk 2/2 EF of 25-30%. Patient has already been started on diuretics with Lasix 20 mg IV push q.12 hours. REVIEW OF SYSTEMS: General: No malaise or fever. Neurological: No fainting episodes or seizures. HEENT: No nasal congestion or nasal secretion. Respiratory: Yes for cough since breath and wheezing. Cardiac: No chest pain or palpitations. Gastrointestinal: No vomiting or diarrhea. Genitourinary: No dysuria hematuria. Skin: No rashes or lesions. Hematological: No bruises or bleeding. Musculoskeletal: No joint pains or arthralgias. Psychiatric: No depression or panic attacks. PHYSICAL EXAM: GENERAL: alert, weak, awake oriented x 3, mildly tachypneic on O2 therapy HEENT: EOMI, Sclera non icteric, moist mucosa NECK: Supple, no JVD, trachea midline LUNGS: Audible wheezing bilaterally HEART: Regular rate and rhythm. Normal S1 and S2, without murmurs ABD: Abdomen soft, nontender. Bowel sounds present EXT: No clubbing cyanosis 2+ pitting edema bilateral lower extremity NEURO: Alert and oriented to person, follows commands Vital Signs (last 8hr) Date Time Temp Pulse Resp B/P (MAP) Pulse Ox O2 Delivery O2 Flow Rate FiO2 04/26/24 11:25 96 20 04/26/24 11:23 96 20 N/A Room Air 21 04/26/24 10:10 98.1 90 19 128/81 97 Nasal Cannula* 2 28 04/26/24 08:00 98.1 94 16 130/84 97 Nasal Cannula* 2 28 04/26/24 07:03 70 20 04/26/24 06:59 90 20 N/Cannula Low lpm 2.0 04/26/24 06:56 91 18 121/79 97 Nasal Cannula* 2 28 LABS: Hematology Labs: Test 04/26/24 06:53 Range/Units White Blood Count 6.3 4.8-10.8 K/uL Red Blood Count 4.82 4.50-6.20 MIL/uL Hemoglobin 13.3 L 14.0-18.0 g/dL Hematocrit 41.6 L 42-54 % Mean Corpuscular Volume 86.3 79-99 fL Mean Corpuscular Hemoglobin 27.6 27.0-33.0 pg Mean Corpuscular Hemoglobin Concent 32.0 32.0-36.0 g/dL Red Cell Distribution Width 14.4 11.0-15.5 % Platelet Count 191 130-400 K/uL Mean Platelet Volume 9.5 7.5-10.5 fL Immature Granulocyte % (Auto) 0.3 0-1 % Neutrophils (%) (Auto) 93.4 H 40.0-77.0 % Lymphocytes (%) (Auto) 4.8 L 21.0-51.0 % Monocytes (%) (Auto) 1.3 L 3.0-13.0 % Eosinophils (%) (Auto) 0.0 0.0-8.0 % Basophils (%) (Auto) 0.2 0.0-5.0 % Neutrophils # (Auto) 5.9 1.8-7.7 K/uL Lymphocytes # (Auto) 0.3 L 1.0-4.8 K/uL Monocytes # (Auto) 0.1 0.1-1.0 K/uL Eosinophils # (Auto) 0.00 0.00-0.70 K/uL Basophils # (Auto) 0.01 0.00-0.20 K/uL Absolute Immature Granulocyte (auto 0.02 0-1 K/uL Nucleated Red Blood Cells 0.0 0.0-0.19 % White Cell Morphology Comment See comments Chemistry Labs: Test 04/26/24 11:36 04/26/24 06:53 04/25/24 13:08 Range/Units Whole Blood Glucose 236 H 70-110 MG/DL Sodium Level 143 136-145 mmol/L Potassium Level 5.0 3.5-5.1 mmol/L Chloride Level 107 101-111 mmol/L Carbon Dioxide Level 27 21-32 mmol/L Blood Urea Nitrogen 20 H 7-18 mg/dL Creatinine 1.5 H 0.5-1.3 mg/dL Glomerular Filtration Rate Calc 55 >90 mL/min Random Glucose 176 H 70-105 mg/dL Total Calcium 8.9 8.5-10.1 mg/dL Magnesium Level 1.80 1.80-2.40 mg/dL Total Bilirubin 0.6 0.2-1.0 mg/dL Aspartate Amino Transf (AST/SGOT) 20 10-37 U/L Alanine Aminotransferase (ALT/SGPT) 23 12-78 U/L Alkaline Phosphatase 91 50-136 U/L Troponin I High Sensitivity 26 4-75 ng/L C-Reactive Protein, Quantitative 28.30 H 0.5-3.0 mg/L Total Protein 6.9 6.0-8.3 g/dL Albumin 3.0 L 3.5-5.0 g/dL Procalcitonin < 0.05 L 0.05-0.5 ng/mL Thyroid Stimulating Hormone (TSH) 1.86 0.36-3.74 uIU/mL B-Type Natriuretic Peptide 2100 H 0-100 pg/mL Triglycerides Level 57 30-200 mg/dL Cholesterol Level 92 <200 mg/dL LDL Cholesterol 52 0-99 mg/dL HDL Cholesterol 34 29-71 mg/dL DIAGNOSTICS / RADIOLOGY RESULTS: Signed PATIENT: RUDY EVERETT MR#: [id number] : 1970 SEX: M AGE: 53 LOCATION: [facility] ORDER 1 STATUS: [facility]M [facility] REPORT#: [id number] SERVICE REASON: sob ORDERING PHYSICIAN: REYNALDO HICKMAN NP PROCEDURE: ECHO [facility] - ECHO 2-D COMPLETE APPROVED REPORT EXAM: Two-dimensional and M-mode echocardiogram with Doppler and color Doppler. Study Details: Hx: HTN, HLP, COPD, DM INDICATION ICD: R06.02 Shortness of breath, Acute heart failure suspected 2D Dimensions RVDd 5.8 cm LVEF(%) 27.7 (>50%) LVED Vol(simp.) 271.0 mL IVSd 0.8 (0.7-1.1cm) FS(%) 13 % LVES Vol(simp.) 205.0 mL LVDd 6.7 (3.8-5.6cm) LA (2D) 5.4 (1.6-4.0cm) LVEF(%, simp.) 24 % PWd 1.1 (0.7-1.1cm) Ao Root(2D) 3.6 (2.0-3.7cm) LA ESV INDEX (4CH) 65.60 mL/m2 IVSs 1.1 cm LVOT diam 2.3 (1.8-2.4cm) LA ESV INDEX (2CH) 64.60 mL/m2 LVDs 5.8 (2.5-4.0cm) LA ESV INDEX (BP) 67.70 mL/m2 PWs 1.4 cm Deformation Strain Apical 4 8.0 % Apical 2 10.0 % Apical 3 6.0 % Global Strain 8.0 % M-Mode Dimensions EPSS 2.1 cm LA (MM) 5.6 (1.6-4.0cm) Ao Root(MM) 4.0 (2.0-3.7cm) Aortic Valve AoV VTI 0.2 m Ao Mean GR 3.0 mmHg LVOT VTI 0.11 m GABRIELA (VMAX) 2.0 cm2 GABRIELA (VTI) 2.0 cm2 Mitral Valve MV E Vmax 114.0 cm/s DECEL Time 180 ms MR Max PG 78 mmHg P 1/2 T 68 ms MVA (PHT) 3.2 cm2 TDI E/E' Medial 24.8 E/E' Lateral 19.7 Medial E' Peak V 4.60 cm/s Lateral E' Peak V 5.80 cm/s Pulmonary Valve PV VTI 0.11 m PV Mean GR 1 mmHg PI End Kitty. Hunter 145.9 cm/s Tricuspid Valve TR Vmax 2.9 m/s RAP (EST) 8 mmHg RVSP 41.1 mmHg TR Peak GR 33.1 mmHg Left Ventricle The left ventricle is severely dilated. Hypokinetic anterior, septal and apical drummond. Global strain of -8%. There is normal left ventricular wall thickness. The Ejection Fraction is 25-30%. Right Ventricle The right ventricle is moderately to severely dilated. The right ventricular systolic function is normal. Atria The left atrium is severely dilated. LASVI 68mL/m. The right atrium is severely dilated. Aortic Valve The aortic valve is normal in structure and function. No aortic regurgitation is present. There is no aortic valvular stenosis. Mitral Valve The mitral valve is mildly thickened. There is mild mitral valve regurgitation noted. There is no mitral valve stenosis. Tricuspid Valve The tricuspid valve leaflets appear normal. There is trace of tricuspid valve regurgitation noted. Pulmonic Valve The pulmonary valve is normal in structure and function. There is trace of pulmonic valvular regurgitation. Great Vessels The aortic root is normal in size. IVC is not well visualized. Pericardium No pericardial effusion. Other Information Quality : Good Conclusion The left ventricle is severely dilated. The Ejection Fraction is 25-30%. The left ventricle is severely dilated. Hypokinetic anterior, septal and apical drummond. Global strain of -8%. There is mild mitral valve regurgitation noted. DICTATED BY: JEY MARTINEZ MD DATE: 04/26/24 1100 ELECTRONICALLY SIGNED BY: JEY MARTINEZ MD DATE: 04/26/24 1420 PLAN: Continue scheduled neb treatment Pulmonary toilet Continue Zosyn and doxycycline. Incentive spirometry 2D echo 25-30% EF ICM Treat fever aggressively Monitor temperature curve Smoking cessation Initiate CIWA protocol Rest of plan care of primary Telemetry monitoring Continue Lasix 20 mg IV q.12 hours Avoid DIXIE inhibitors and ARBS Prophylaxis: Continue GI and DVT prophylaxis Pepcid and Lovenox Code Status: Full Resuscitation Disposition: Per primary. Other: Total patient care time exceeds 35 minutes excluding all procedures. MANJU MINOR [facility] Apr 26, 2024 14:08
--- NOTE | 2024-04-26 14:20 | HMCSR ---
APPROVED REPORT EXAM: Two-dimensional and M-mode echocardiogram with Doppler and color Doppler. Study Details: Hx: HTN, HLP, COPD, DM INDICATION ICD: R06.02 Shortness of breath, Acute heart failure suspected 2D Dimensions RVDd5.8 cmLVEF(%)27.7 (>50%)LVED Vol(simp.)271.0 mL IVSd0.8 (0.7-1.1cm)FS(%)13 %LVES Vol(simp.)205.0 mL LVDd6.7 (3.8-5.6cm)LA (2D)5.4 (1.6-4.0cm)LVEF(%, simp.)24 % PWd1.1 (0.7-1.1cm)Ao Root(2D)3.6 (2.0-3.7cm)LA ESV INDEX (4CH)65.60 mL/m2 IVSs1.1 cmLVOT diam2.3 (1.8-2.4cm)LA ESV INDEX (2CH)64.60 mL/m2 LVDs5.8 (2.5-4.0cm)LA ESV INDEX (BP)67.70 mL/m2 PWs1.4 cm Deformation Strain Apical 48.0 % Apical 210.0 % Apical 36.0 % Global Strain8.0 % M-Mode Dimensions EPSS2.1 cm LA (MM)5.6 (1.6-4.0cm) Ao Root(MM)4.0 (2.0-3.7cm) Aortic Valve AoV VTI0.2 mAo Mean GR3.0 mmHgLVOT VTI0.11 m GABRIELA (VMAX)2.0 cm2AVA (VTI) 2.0 cm2 Mitral Valve MV E Aekr095.0 cm/sDECEL [id number] ms MR Max PG78 mmHgP 1/2 T68 ms MVA (PHT)3.2 cm2 TDI E/E' [id number]/E' [id number] Medial E' Peak V4.60 cm/sLateral E' Peak V5.80 cm/s Pulmonary Valve PV VTI0.11 mPV Mean GR1 mmHg PI End Kitty. Hunter 145.9 cm/s Tricuspid Valve TR Vmax2.9 m/sRAP (EST) 8 tzCoYYLA95.1 mmHg TR Peak GR33.1 mmHg Left Ventricle The left ventricle is severely dilated. Hypokinetic anterior, septal and apical drummond. Global strain of -8%. There is normal left ventricular wall thickness. The Ejection Fraction is 25-30%. Right Ventricle The right ventricle is moderately to severely dilated. The right ventricular systolic function is nor mal. Atria The left atrium is severely dilated. LASVI 68mL/m. The right atrium is severely dilated. Aortic Valve The aortic valve is normal in structure and function. No aortic regurgitation is present. There is no aortic valvular stenosis. Mitral Valve The mitral valve is mildly thickened. There is mild mitral valve regurgitation noted. There is no ramos ral valve stenosis. Tricuspid Valve The tricuspid valve leaflets appear normal. There is trace of tricuspid valve regurgitation noted. Pulmonic Valve The pulmonary valve is normal in structure and function. There is trace of pulmonic valvular regurgit ation. Great Vessels The aortic root is normal in size. IVC is not well visualized. Pericardium No pericardial effusion. Other Information Quality : Good Conclusion The left ventricle is severely dilated. The Ejection Fraction is 25-30%. The left ventricle is severely dilated. Hypokinetic anterior, septal and apical drummond. Global strain of -8%. There is mild mitral valve regurgitation noted.
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
[2024-04-26] MEDS ORDERED: ZOSYN 3.375GM +NS 50ML IV SCH (19:30)
[2024-04-26] MEDS: SODIUM CHLORIDE 3% FOR INHALATION 4 ML/AMP VIAL.NEB IH ONE ×2 (19:57→23:04)
[2024-04-26] MEDS: DOXYCYCLINE 100MG+NS 250ML 250 ML IV SCH (20:43)
[2024-04-26] MEDS: hydrALAZine HCL 10 MG TABLET PO SCH (21:01)
[2024-04-26] MEDS: hydrOXYzine 25 MG TABLET PO PRN (21:01)
[2024-04-26] MEDS ORDERED: NO HOME MEDS PER PT (22:56)
[2024-04-26] MEDS: ZOSYN 3.375GM +NS 50ML IV SCH (23:05)
[2024-04-27] VITALS (11 sets, daily range): BP systolic 125–144; BP diastolic 81–99; PULSE 60–101; RESP 16–22; TEMP 97.8–98.8; O2SAT 96–99
[2024-04-27] MEDS: acetaMINOPHEN 325 MG TAB PO PRN (02:45)
[2024-04-27 03:39] LABS: HEMATOCRIT 39.8 % (42-54); MEAN CORPUSCULAR HEMOGLOBIN 28.4 pg (27.0-33.0); MEAN CORPUSCULAR HGB CONC 32.9 g/dL (32.0-36.0); MEAN CORPUSCULAR VOLUME 86.3 fL (79-99); RED BLOOD CELL COUNT(AUTO) 4.61 MIL/uL (4.50-6.20); RED CELL DISTRIBUTION WIDTH 14.5 % (11.0-15.5); WHITE BLOOD COUNT (AUTO) 11.6 K/uL (4.8-10.8)
[2024-04-27 04:04] LABS: CREATININE 1.5 mg/dL (0.5-1.3); POTASSIUM 4.2 mmol/L (3.5-5.1)
[2024-04-27 04:05] LABS: BILIRUBIN,TOTAL 0.5 mg/dL (0.2-1.0); MAGNESIUM 1.8 mg/dL (1.80-2.40); TOTAL PROTEIN, SERUM 6.8 g/dL (6.0-8.3)
--- NOTE | 2024-04-27 06:16 | PN ---
[facility] Cardiology Progress Note CARDIOLOGY PROGRESS NOTE April Problems: 1. Acute on chronic systolic heart failure BNP level of 2100 on admission. 2. Possible remote myocardial infarction in 2012 in the setting of hospitalization for angioedema secondary to benazepril 3. Ischemic cardiomyopathy with LV ejection fraction of 25-30% 4. History of angio edema with benazepril. 5. Remote CVA 2014 Blood pressure is running 120-130 systolic heart rate is in the 95-100 range. Patient is afebrile. He has diuresed 1400 cc overnight. White count has gone up hemoglobin 13.1 Platelet count [id number]. Potassium 4.2 BUN 36 creatinine 1.5 Up from 1.3 on admission. Troponins have been normal x3. patient is receiving albuterol aspirin atorvastatin antibiotics Lovenox famotidine furosemide 20 mg IV q.12 hours insulin scale isosorbide mononitrate hydralazine Solu-Medrol metoprolol succinate potassium protocol and thiamine. 2D echo yesterday showed an ejection fraction of 25-30%. He had mild mitral regurgitation. No pericardial effusion. Hypokinesis of the anterior wall septal and apical drummond noted consistent with his history of myocardial infarction. Once recovered he will require further evaluation for ischemic burden. We will plan on increasing his metoprolol dose today for better heart rate control. We will repeat his creatinine again tomorrow and if stable add spironolactone to his regimen. Patient has diuresed well. His breathing has improved. Continue hours of IV diuresis. We will consider scheduling a Lexiscan Cardiolite stress test for risk stratification and48 hours. He has a considerable amount of anxiety. He states this is not withdrawal from nicotine but a longstanding problem. He states he does not drink. Did get some Atarax but has not felt any better with this. He had taken Xanax in the past and will prescribe Xanax p.r.n. for him. JEY MARTINEZ MD Apr 27, 2024 06:16
[2024-04-27] MEDS: MAGNESIUM 2GM PREMIX 50ML 50 ML IV PRN (06:18)
[2024-04-27] MEDS ORDERED: metOPROLol sucCINATE 25 MG TAB.SR.24H PO SCH (09:00)
[2024-04-27] MEDS: metOPROLol sucCINATE 50 MG TAB.SR.24H PO SCH (09:16)
--- NOTE | 2024-04-27 09:16 | PN ---
[facility] PROGRESS NOTE Date of Service: Apr 27, 2024 Time of Service: 09:04 SUBJECTIVE: [ ] admission date: 04/25/24 PCP: no PCP This is a 53-year-old male the presents in ER with chief complaints of shortness a breath associated with atypical chest pain triggered by allergens patient reports he has been cleaning his parents home for several days and reports he has been exposed to heavy dust. Shortness a breath has been going on for a week and gradually worsen today, severity moderate to severe aggravated activity, alleviating factor rest. Associated symptoms chest discomfort, swelling to lower extremities. 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 04/26/24: Patient is seen and examined with Dr. Wilcox patient remains in ED 14, will be transfer to Med surg. Patient's vascular congested :fluid overload BNP: 2100 patient will be started on Lasix 20 mg IV b.i.d.. 2D echo pending gambling floor supervisor consulted strep test negative. 04/27/24 patient was seen and examined patient was seen by gambling floor supervisor's. 2D echo showed EF of 25-30% with mild mitral regurgitation. No pericardial effusion. Hypokinesis of the anterior wall septal and apical drummond noted consistent with his history of myocardial infarction. He will continue to diurese patient. Continue [id number] hours of IV diuresis he will consider a Lexiscan stress test in the next48 hours.. 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 Leukocytosis most likely secondary to IV steroids we will taper. REVIEW OF SYSTEMS CONSTITUTIONAL: Denies fevers, chills, or night sweats. No unintentional weight loss reported. NEUROLOGICAL: Denies headache, amaurosis fugax, motor weakness, sensory deficit, vertigo/spinning sensation, gait abnormalities, or tremors. ENT: No hearing loss, otalgia, otorrhea, rhinitis, rhinorrhea, hoarseness, or sore throat. CARDIOVASCULAR: Denies any exertional angina, dyspnea on exertion, orthopnea, paroxysmal nocturnal dyspnea, palpitations, life-threatening arrhythmias, claudication. PULMONARY: Denies any shortness of breath, cough, phlegm/sputum, hemoptysis, pleuritic chest pain. SLEEP: Denies morning headaches, daytime somnolence or napping. Denies difficulty falling asleep, staying asleep, waking from sleep. Denies knowledge of snoring. GASTROINTESTINAL: Denies any type of dysphagia to either liquids or solids. Denies nausea, vomiting, pyrosis, early satiety, abdominal pain, diarrhea, constipation, or changes in stool consistency or caliber. Denies coffee-ground emesis, hematemesis, hematochezia, or melanotic stools. GENITOURINARY: Denies frequency, urgency, nocturia, hematuria or incontinence (Storage/Irritative symptoms.) Low urinary stream, straining to void, urinary intermittency or hesitancy, splitting of the voiding stream, terminal dribbling. ENDOCRINOLOGIC: Denies polyuria, polydipsia, polyphagia or heat/cold intolerances. HEMATOLOGIC: Denies thrombophilia/previous clots, or coagulopathy/bleeding disorders. ONCOLOGIC: Denies personal history of malignancy. DERMATOLOGIC: Denies rashes or pruritus. PSYCHIATRIC: Denies any suicidal or homicidal ideation. Denies hallucinations. PHYSICAL EXAM GENERAL APPEARANCE: The patient is awake, alert, and oriented, in no acute cardiopulmonary distress. NEUROLOGICAL: Cranial nerves II-XII grossly intact. Motor is 5/5 in bilateral upper and lower extremities proximal to distal. No sensory deficits. HEENT: Face is symmetric. Pupils are equal and reactive. Extraocular movements are intact. NECK: Supple. No JVD. No thyromegaly. No submental, submandibular, pre- /postauricular, occipital or supraclavicular lymphadenopathy. CHEST: Normal chest expansion. No Telemetry. LUNGS: Absence of any rales, rhonchi or any wheezing. CARDIOVASCULAR: Regular. S1 and S2 normal. No appreciable rubs, murmurs or gallops. ABDOMEN: Soft, nontender, and nondistended. There is no rebound, voluntary guarding, or rigidity. : Deferred. No [place]. EXTREMITIES: Non-edematous and not cyanotic. No clubbing. Good capillary refill. SKIN: No skin breakdown. Vital Signs (last 8hr) Date Time Temp Pulse Resp B/P (MAP) Pulse Ox O2 Delivery O2 Flow Rate FiO2 04/27/24 08:15 98.1 62 16 137/99 95 Room Air 04/27/24 06:58 60 18 04/27/24 06:58 60 20 N/A Room Air 21 04/27/24 03:45 97.9 96 20 125/85 97 Room Air LABS: Laboratory: Test 04/27/24 05:48 04/27/24 03:32 04/26/24 06:53 04/25/24 19:07 Range/Units Whole Blood Glucose 203 #H 70-110 MG/DL White Blood Count 11.6 #H 4.8-10.8 K/uL Red Blood Count 4.61 4.50-6.20 MIL/uL Hemoglobin 13.1 L 14.0-18.0 g/dL Hematocrit 39.8 L 42-54 % Mean Corpuscular Volume 86.3 79-99 fL Mean Corpuscular Hemoglobin 28.4 27.0-33.0 pg Mean Corpuscular Hemoglobin Concent 32.9 32.0-36.0 g/dL Red Cell Distribution Width 14.5 11.0-15.5 % Platelet Count 183 130-400 K/uL Mean Platelet Volume 9.4 7.5-10.5 fL Nucleated Red Blood Cells 0.0 0.0-0.19 % Sodium Level 135 L 136-145 mmol/L Potassium Level 4.2 3.5-5.1 mmol/L Chloride Level 99 L 101-111 mmol/L Carbon Dioxide Level 27 21-32 mmol/L Blood Urea Nitrogen 36 H 7-18 mg/dL Creatinine 1.5 H 0.5-1.3 mg/dL Glomerular Filtration Rate Calc 55 >90 mL/min Random Glucose 210 H 70-105 mg/dL Total Calcium 8.6 8.5-10.1 mg/dL Magnesium Level 1.80 1.80-2.40 mg/dL Total Bilirubin 0.5 0.2-1.0 mg/dL Aspartate Amino Transf (AST/SGOT) 18 10-37 U/L Alanine Aminotransferase (ALT/SGPT) 25 12-78 U/L Alkaline Phosphatase 82 50-136 U/L Total Protein 6.8 6.0-8.3 g/dL Albumin 3.0 L 3.5-5.0 g/dL Immature Granulocyte % (Auto) 0.3 0-1 % Neutrophils (%) (Auto) 93.4 H 40.0-77.0 % Lymphocytes (%) (Auto) 4.8 L 21.0-51.0 % Monocytes (%) (Auto) 1.3 L 3.0-13.0 % Eosinophils (%) (Auto) 0.0 0.0-8.0 % Basophils (%) (Auto) 0.2 0.0-5.0 % Neutrophils # (Auto) 5.9 1.8-7.7 K/uL Lymphocytes # (Auto) 0.3 L 1.0-4.8 K/uL Monocytes # (Auto) 0.1 0.1-1.0 K/uL Eosinophils # (Auto) 0.00 0.00-0.70 K/uL Basophils # (Auto) 0.01 0.00-0.20 K/uL Absolute Immature Granulocyte (auto 0.02 0-1 K/uL White Cell Morphology Comment See comments Troponin I High Sensitivity 26 4-75 ng/L C-Reactive Protein, Quantitative 28.30 H 0.5-3.0 mg/L Procalcitonin < 0.05 L 0.05-0.5 ng/mL Thyroid Stimulating Hormone (TSH) 1.86 0.36-3.74 uIU/mL Group A Streptococcus Rapid NEGATIVE NEGATIVE Test 04/25/24 17:40 04/25/24 13:08 Range/Units Urine Color LIGHT-YELLOW YELLOW Urine Appearance CLEAR CLEAR Urine pH 5.5 5.0-8.0 Urine Specific [place] 1.008 1.001-1.031 Urine Protein NEGATIVE NEGATIVE mg/dL Urine Glucose (UA) NEGATIVE NEGATIVE mg/dL Urine Ketones NEGATIVE NEGATIVE mg/dL Urine Occult Blood NEGATIVE NEGATIVE Urine Nitrate NEGATIVE NEGATIVE Urine Bilirubin NEGATIVE NEGATIVE mg/dL Urine Urobilinogen 0.2 0.2-1.0 mg/dL Urine Leukocyte Esterase NEGATIVE NEGATIVE Syeda/uL Urine Opiates Screen NEGATIVE NEGATIVE Urine Barbiturates Screen NEGATIVE NEGATIVE Urine Phencyclidine Screen NEGATIVE NEGATIVE Urine Amphetamines Screen NEGATIVE NEGATIVE Urine Benzodiazepines Screen NEGATIVE NEGATIVE Urine Cocaine Screen NEGATIVE NEGATIVE Urine Marijuana (THC) Screen NEGATIVE NEGATIVE Influenza Type A Antigen Negative For Type A NEGATIVE Influenza Type B Antigen Negative For Type B NEGATIVE B-Type Natriuretic Peptide 2100 H 0-100 pg/mL Triglycerides Level 57 30-200 mg/dL Cholesterol Level 92 <200 mg/dL LDL Cholesterol 52 0-99 mg/dL HDL Cholesterol 34 29-71 mg/dL Current Medications Medications (Trade) Dose Ordered Sig/Crow Route PRN Reason Start Time Stop Time Status Last Admin Dose Admin Acetaminophen (TYLenol 325MG TAB) 650 mg Q4H PRN PO TEMPERATURE GREATER THAN 101.5 04/25/24 16:30 05/25/24 16:29 04/27/24 02:45 650 MG Albuterol (DUOneb) 1 UDVIAL Q6H PRN IH SHORTNESS OF BREATH 04/25/24 16:30 05/25/24 16:29 04/27/24 06:55 1 UDVIAL Alprazolam (XANax 0.25MG) 0.25 mg TID PRN PO ANXIETY 04/27/24 07:00 05/27/24 06:59 Amlodipine Besylate (NorvASC 5MG TAB) 5 mg DAILY PO 04/26/24 09:00 04/26/24 14:27 DC 04/26/24 09:55 5 MG Aspirin (Aspirin 81mg Ec Tab) 81 mg DAILY PO 04/26/24 09:00 05/26/24 08:59 04/26/24 09:55 81 MG Atorvastatin Calcium (LIPItor 10MG) 10 mg HS PO 04/25/24 21:00 05/25/24 20:59 04/26/24 20:59 10 MG Azithromycin 250 ml @ 250 mls/hr Q24H IVPB 04/25/24 16:30 04/26/24 19:09 DC 04/26/24 16:15 250 MLS/HR Budesonide (Pulmicort 0.5 Mg/2ml) 0.5 mg BIDRESP IH 04/26/24 06:00 05/26/24 05:59 04/27/24 06:55 0.5 MG Ceftriaxone Sodium (ROCEphine 1G INJ) 1 gm Q12H IVPB 04/26/24 08:00 04/26/24 19:05 DC 04/26/24 09:56 1 GM Ceftriaxone Sodium (ROCEphine 1G INJ) 1 gm Q24H IVPB 04/25/24 22:30 04/26/24 07:58 DC 04/25/24 22:56 1 GM Doxycycline Hyclate 250 ml @ 125 mls/hr Q12H IV 04/26/24 19:30 05/06/24 19:29 04/26/24 20:43 125 MLS/HR Enoxaparin Sodium (Lovenox) 40 mg DAILY SQ 04/27/24 09:00 12/11/24 08:59 Famotidine (Pepcid 20mg Tab) 20 mg BID PO 04/25/24 21:00 05/25/24 20:59 04/26/24 21:01 20 MG Furosemide (LASix 20MG VIAL) 20 mg Q12H IV 04/26/24 09:00 05/26/24 08:59 04/26/24 20:55 20 MG Hydralazine HCl (APRESOLine 10MG TAB) 10 mg TID PO 04/26/24 21:00 05/26/24 20:59 04/26/24 21:01 10 MG Hydralazine HCl (APRESOLine 20MG INJ) 5 mg Q4H PRN IV ADMINISTER FOR SBP > 160 04/25/24 17:00 05/25/24 16:59 Hydroxyzine HCl (ATArax 25MG TAB) 25 mg Q6H6 PRN PO ANXIETY 04/26/24 20:30 04/27/24 06:39 DC 04/27/24 05:01 25 MG Insulin Human Regular (humuLIN R 100 UNIT/ML 3ML) INSULIN SLIDING SCAL... ACHS SQ 04/25/24 16:30 05/25/24 16:29 04/27/24 06:17 6 UNIT Isosorbide Mononitrate (Imdur 30mg Sr) 30 mg DAILY PO 04/27/24 09:00 05/27/24 08:59 Lactated Ringer's 1,000 ml @ 75 mls/hr [id number] IV 04/26/24 09:00 04/26/24 19:04 DC 04/26/24 09:57 75 MLS/HR Lisinopril (Prinivil 20mg) 20 mg DAILY PO 04/26/24 09:00 04/25/24 19:43 DC Magnesium Sulfate 50 ml @ 0 mls/hr PROTOCOL PRN IV low mag level 04/25/24 16:30 05/25/24 16:29 04/27/24 06:18 25 MLS/HR Methylprednisolone Sodium Succinate (Solu-medROL 40MG) 40 mg Q12H9 IVP 04/25/24 21:00 05/25/24 20:59 04/26/24 20:55 40 MG Methylprednisolone Sodium Succinate (Solu-medROL 40MG) 40 mg Q8H IVP 04/25/24 16:30 04/25/24 16:31 DC Metoprolol Succinate (TopROL XL) 25 mg DAILY PO 04/27/24 09:00 04/27/24 06:17 DC Metoprolol Succinate (TopROL XL) 50 mg DAILY PO 04/27/24 09:00 05/27/24 08:59 Montelukast Sodium (SinguLAIR) 10 mg HS PO 04/25/24 21:00 05/25/24 20:59 04/26/24 21:01 10 MG Nitroglycerin (Nitrostat) 0.4 mg AD PRN SL CHEST PAIN 04/25/24 17:00 05/25/24 16:59 Ondansetron HCl (zoFRAN 4MG INJ) 4 mg Q6H PRN IVP NAUSEA/VOMITING 04/25/24 16:30 05/25/24 16:29 Piperacillin Sod/ Tazobactam Sod (Zosyn 3.375gm+NS 50ml) 3.375 gm Q8H IV 04/26/24 19:30 04/26/24 20:47 DC Piperacillin Sod/ Tazobactam Sod (Zosyn 3.375gm+NS 50ml) 3.375 gm Q8H6 IV 04/26/24 22:00 05/06/24 21:59 04/27/24 06:16 3.375 GM Potassium Chloride 100 ml @ 100 mls/hr AD PRN IV POTASSIUM PROTOCOL 04/25/24 16:30 05/25/24 16:29 Potassium Chloride (K-Dur/Klor-Con 20meq) 20 meq AD PRN PO POTASSIUM PROTOCOL 04/25/24 16:30 05/25/24 16:29 Potassium Chloride (KCl 10% Elixir 20meq/15ml) 20 meq AD PRN PO POTASSIUM PROTOCOL 04/25/24 16:30 05/25/24 16:29 Thiamine HCl (Vitamin B-1) 100 mg DAILY PO 04/26/24 09:00 05/26/24 08:59 04/26/24 09:56 100 MG DIAGNOSTICS / RADIOLOGY: [ ] ASSESSMENT: Acute on chronic systolic heart failure EF 25-30% POA Ischemic cardiomyopathy with LV ejection fraction of 25-30% POA Acute Resp failure with hypoxia POA Small left and [id number] right pleural effusion i suspected bronchitis POA acute chf exacerbation unknown EF% POA Atypical chest pain POA suspecting costochondritis POA uncontrolled HTN POA Active depression POA KIRAN ATN supecting cardiorenal syndrome Leukocytosis most likely to IV steroids. Chronic problems: HTN, HLD CHF: not on current medication management only baby asa take it when he remembers. PLAN: [ ] admit to [facility] mobile sales consultant: Pulmologist: gambling floor supervisor diet: regular ABT's; Azithromycin 500 mg IV daily and Rocephin 1 gm Q 12hr Solumedrol 40 mg IV every 12 hrs decreased to daily ; DuoNeb as needed Test: Echo noted Armored Car Guard's following started the patient on Imdur.avoid DIXIE inhibitors and ARB use continue with diuresis IV one more day. We will change to spironolactone upon discharge. Possible Lexiscan in the next 24- 48 p.m. fluid restriction 1500 ml/hr, Lasix 20 mg iV bid Nitroglycerin 0.4 mg SL as directed Reaming Machine Operator For Plastic consulted avoid NSAIDs strict I&Os DVT-GI ppx replace electrolytes as needed basis per protocol RN pending to reviewed home medications PT services to eval and treat. PRN: MEDICATIONS Tylenol 650 mg po every 4 hrs for fever Zofran 4 mg IV every 6 hrs for n/v Hydralazine 10 mg IV every 4 hrs systolic pressure > 160 Supportive measures: DVT ppx, GI ppx all questions answered Supervising MD: Dr. Tee c/d agreed with plan of care. ATTESTATION BY PHYSICIAN I have seen and examined the patient. I reviewed the documentation, medical decision making, and treatment plan as noted by the mid-level provider above. I agree with the findings and plan of care. Nicole Tee MD, ELIZABETH NP Apr 27, 2024 09:16
[2024-04-27] MEDS: ENOXAPARIN SODIUM 40 MG/0.4 ML SYRINGE SQ SCH (09:17)
[2024-04-27] MEDS: ALPRAZolam 0.25 MG TABLET PO PRN (09:21)
[2024-04-27 11:27] LABS: APPEARANCE,URINE CLEAR (CLEAR); BILIRUBIN,URINE NEGATIVE (NEGATIVE); COLOR,URINE LIGHT-YELLOW (YELLOW); GLUCOSE, URINE (UA) NEGATIVE (NEGATIVE); KETONES,URINE NEGATIVE (NEGATIVE); LEUKOCYTE ESTERASE ,URINE NEGATIVE Leu/uL (NEGATIVE); NITRATE,URINE NEGATIVE (NEGATIVE); OCCULT BLOOD,URINE NEGATIVE (NEGATIVE); PH,URINE 5.5 (5.0-8.0); PROTEIN,URINE NEGATIVE (NEGATIVE); UROBILINOGEN,URINE 0.2 mg/dL (0.2-1.0)
[2024-04-27 11:40] LABS: ADD UA MICROSCOPIC NO
--- NOTE | 2024-04-27 12:33 | PN ---
[facility] PROGRESS NOTE Date Patient Seen: Apr 27, 2024 Time of Visit: 12:33 Supervising Physician: Dimitry Bartholomew MD Consulting Care Physician: Dr Wilcox Outpatient Specialists: [ ] Inpatient Consults: Dr Muir , Cardiology PROBLEM LIST: Acute hypoxic respiratory failure, POA Community-acquired pneumonia, POA CURB 65 1 (Low risk group: 2.7% 30-day mortality) Bilateral small pleural effusion with bilateral lobe atelectasis, POA Acute On Chronic Systolic Heart Failure With ICM Ef Of 25-30%, POA ON 2D ECHO 04/26/24 COPD in acute exacerbation, POA Hypertension, POA DM type 2, with hyperglycemia, POA History of angioedema with benazepril (avoid DIXIE inhibitors and ARBS) PLAN: Continue scheduled neb treatment Pulmonary toilet Continue Zosyn and doxycycline. Incentive spirometry 2D echo 25-30% EF ICM Treat fever aggressively Monitor temperature curve Smoking cessation Wean steroids as tolerated Telemetry monitoring Continue Lasix 20 mg IV q.12 hours Avoid DIXIE inhibitors and ARBS due to history of angioedema INTERVAL HISTORY: 04/26-Patient awake alert and oriented x3. Currently on 2 L via nasal cannula saturating 97% hemodynamically stable respiratory rate 19 unlabored he has been afebrile with a T-max of 98.4 and a T low of 97.1. 2D echo reading with normal left ventricular wall thickness, EF is 20 53%. Right ventricle moderately dilated. Left ventricle is severely dilated. Hypokinetic anterior septal and apical drummond. Global strain of -8%. There is mild mitral valve regurgitation noted. RVSP is 41.1. Neutrophils increased to 93.4 today. Otherwise CBC similar to yesterday. BUN 20 creatinine 1.5 with a GFR of 55. Glucose 176 mg/dL CRP 28.3 albumin 3.0 procalcitonin less than 0.05. Influenza negative group strep negative pending COVID-19 test. Antibiotics changed to Zosyn to cover for possible Pseudomonas empirically due to his chronic history of lung disease. Added doxycycline and stopped azithromycin in order to cover for community-acquired pneumonia and prevent tachyarrhythmias given his high-risk 2/2 EF of 25-30%. Patient has already been started on diuretics with Lasix 20 mg IV push q.12 hours. 04/27-patient is awake alert and oriented x 3, patient has been afebrile heart rate in the 80s with a blood pressure 134/84, respiratory rate of 16 unlabored saturating 98% on room air. Patient reports feeling much better. His breathing has improved. Diuresing well. Per Cardiology we will consider scheduling a Lexiscan Cardiolite stress test. Otherwise CBC unremarkable, chemistries similar to yesterday with a sodium 135 chloride 99 BUN 36 creatinine 1.5 GFR 55.. Glucose has been ranging in the 200s, steroids has been weaned off. This should improve from readings. REVIEW OF SYSTEMS: General: No malaise or fever. Neurological: No fainting episodes or seizures. HEENT: No nasal congestion or nasal secretion. Respiratory: Reports breathing much better. Cardiac: No chest pain or palpitations. Gastrointestinal: No vomiting or diarrhea. Genitourinary: No dysuria hematuria. Skin: No rashes or lesions. Hematological: No bruises or bleeding. Musculoskeletal: No joint pains or arthralgias. Psychiatric: No depression or panic attacks. PHYSICAL EXAM: GENERAL: alert, weak, awake oriented x 3, mildly tachypneic on O2 therapy HEENT: EOMI, Sclera non icteric, moist mucosa NECK: Supple, no JVD, trachea midline LUNGS: Audible wheezing bilaterally HEART: Regular rate and rhythm. Normal S1 and S2, without murmurs ABD: Abdomen soft, nontender. Bowel sounds present EXT: No clubbing cyanosis 2+ pitting edema bilateral lower extremity NEURO: Alert and oriented to person, follows commands Vital Signs (last 8hr) Date Time Temp Pulse Resp B/P (MAP) Pulse Ox O2 Delivery O2 Flow Rate FiO2 04/27/24 11:51 97.9 89 16 144/84 98 Room Air 04/27/24 08:15 98.1 62 16 137/99 95 Room Air 04/27/24 08:00 98 Nasal Cannula* 2 28 04/27/24 06:58 60 18 04/27/24 06:58 60 20 N/A Room Air 21 LABS: Hematology Labs: Test 04/27/24 03:32 04/26/24 06:53 Range/Units White Blood Count 11.6 #H 4.8-10.8 K/uL Red Blood Count 4.61 4.50-6.20 MIL/uL Hemoglobin 13.1 L 14.0-18.0 g/dL Hematocrit 39.8 L 42-54 % Mean Corpuscular Volume 86.3 79-99 fL Mean Corpuscular Hemoglobin 28.4 27.0-33.0 pg Mean Corpuscular Hemoglobin Concent 32.9 32.0-36.0 g/dL Red Cell Distribution Width 14.5 11.0-15.5 % Platelet Count 183 130-400 K/uL Mean Platelet Volume 9.4 7.5-10.5 fL Nucleated Red Blood Cells 0.0 0.0-0.19 % Immature Granulocyte % (Auto) 0.3 0-1 % Neutrophils (%) (Auto) 93.4 H 40.0-77.0 % Lymphocytes (%) (Auto) 4.8 L 21.0-51.0 % Monocytes (%) (Auto) 1.3 L 3.0-13.0 % Eosinophils (%) (Auto) 0.0 0.0-8.0 % Basophils (%) (Auto) 0.2 0.0-5.0 % Neutrophils # (Auto) 5.9 1.8-7.7 K/uL Lymphocytes # (Auto) 0.3 L 1.0-4.8 K/uL Monocytes # (Auto) 0.1 0.1-1.0 K/uL Eosinophils # (Auto) 0.00 0.00-0.70 K/uL Basophils # (Auto) 0.01 0.00-0.20 K/uL Absolute Immature Granulocyte (auto 0.02 0-1 K/uL White Cell Morphology Comment See comments Chemistry Labs: Test 04/27/24 05:48 04/27/24 03:32 04/26/24 06:53 04/25/24 13:08 Range/Units Whole Blood Glucose 203 #H 70-110 MG/DL Sodium Level 135 L 136-145 mmol/L Potassium Level 4.2 3.5-5.1 mmol/L Chloride Level 99 L 101-111 mmol/L Carbon Dioxide Level 27 21-32 mmol/L Blood Urea Nitrogen 36 H 7-18 mg/dL Creatinine 1.5 H 0.5-1.3 mg/dL Glomerular Filtration Rate Calc 55 >90 mL/min Random Glucose 210 H 70-105 mg/dL Total Calcium 8.6 8.5-10.1 mg/dL Magnesium Level 1.80 1.80-2.40 mg/dL Total Bilirubin 0.5 0.2-1.0 mg/dL Aspartate Amino Transf (AST/SGOT) 18 10-37 U/L Alanine Aminotransferase (ALT/SGPT) 25 12-78 U/L Alkaline Phosphatase 82 50-136 U/L Total Protein 6.8 6.0-8.3 g/dL Albumin 3.0 L 3.5-5.0 g/dL Troponin I High Sensitivity 26 4-75 ng/L C-Reactive Protein, Quantitative 28.30 H 0.5-3.0 mg/L Procalcitonin < 0.05 L 0.05-0.5 ng/mL Thyroid Stimulating Hormone (TSH) 1.86 0.36-3.74 uIU/mL B-Type Natriuretic Peptide 2100 H 0-100 pg/mL Triglycerides Level 57 30-200 mg/dL Cholesterol Level 92 <200 mg/dL LDL Cholesterol 52 0-99 mg/dL HDL Cholesterol 34 29-71 mg/dL DIAGNOSTICS / RADIOLOGY RESULTS: [ ] PLAN: Continue scheduled neb treatment Pulmonary toilet Continue Zosyn and doxycycline. Incentive spirometry 2D echo 25-30% EF ICM Treat fever aggressively Monitor temperature curve Smoking cessation Initiate CIWA protocol Rest of plan care of primary Telemetry monitoring Continue Lasix 20 mg IV q.12 hours for the next 24 hrs Avoid DIXIE inhibitors and ARBS Prophylaxis: Continue GI and DVT prophylaxis Pepcid and Lovenox Code Status: Full Resuscitation Disposition: Per primary. Other: Total patient care time exceeds 35 minutes excluding all procedures. MANJU [facility] Apr 27, 2024 12:33
[2024-04-27] MEDS: ISOSORBIDE MONO 30MG SR TAB PO SCH (13:08)
--- NOTE | 2024-04-27 16:16 | CONS ---
REFERRING PHYSICIAN: Rajat Wilcox MD REASON FOR CONSULTATION: Renal failure. HISTORY OF PRESENT ILLNESS: A 53-year-old male with a history of hypertension and known coronary artery disease. The patient presented to the hospital and found to have underlying chest pain. The patient has a previous history of coronary artery disease. The patient has been seen by Cardiology. The patient's 2D echo consistent with severe cardiomyopathy. Laboratory values have revealed an elevated BUN and creatinine and the patient is being seen in consultation for all the above. PAST MEDICAL HISTORY: Diabetes mellitus, hypertension, cardiomyopathy. PAST SURGICAL HISTORY: Leg surgery. SOCIAL HISTORY: No alcohol or tobacco use. FAMILY HISTORY: No renal disease in the family. ALLERGIES: HE HAS AN ALLERGY TO BENAZEPRIL AND AMLODIPINE. MEDICATIONS: All noted. REVIEW OF SYSTEMS: GENERAL: He is feeling weak and tired. HEENT: No change in vision. No change in hearing. CARDIOVASCULAR: There is no current chest pain or palpitations. PULMONARY: No shortness of breath. GASTROINTESTINAL: He is tolerating a diet. MUSCULOSKELETAL: Complains of weakness. NEUROLOGIC: No seizures or focal deficits. PSYCHIATRIC: No history of hallucinations or psychosis. ENDOCRINE: Diabetes mellitus. No history of thyroid disease. HEME: History of anemia. No history of malignancy. PHYSICAL EXAMINATION: VITAL SIGNS: Blood pressure 144/84, pulse in the 80s. GENERAL: He is a chronically ill male, older than appearing. HEENT: Head is atraumatic. Pupils equal, roving to light. Oropharynx is without exudate. Nares clear. NECK: There is no JVP. There is no thyromegaly, no mass. CARDIOVASCULAR: Regular. There is no S3, S4 gallop. LUNGS: Coarse with equal thoracic movement. ABDOMEN: Soft, nondistended, nontender. EXTREMITIES: Reveal no clubbing, no cyanosis. NEUROLOGICAL: He is awake. He is alert. He is oriented. SKIN: Reveals no rash or nodules. BACK: There is no CVA tenderness, no back deformities. LABORATORY DATA: Sodium 135, potassium 4.2, BUN 36, creatinine is 1.5. Hemoglobin 13, hematocrit 39. Urinalysis is noted. IMPRESSION: * [id number] renal dysfunction. * Severe cardiomyopathy. * Hypertension. * Diabetes mellitus. PLAN: The patient does have significant renal dysfunction. Creatinine is noted. The patient is being seen by Cardiology. The patient can safely proceed with any intervention from a renal standpoint. We will send off urine for electrolytes for completeness. We will follow closely. The patient with multiple questions, all of which were answered. TID: [id number] RECEIPT: [id number]
[2024-04-28] VITALS (11 sets, daily range): BP systolic 125–140; BP diastolic 48–90; PULSE 20–95; RESP 16–22; TEMP 97.8–98.1; O2SAT 96–99
[2024-04-28 03:55] LABS: BASOPHILS # (AUTO) 0.03 K/uL (0.00-0.20); BASOPHILS % (AUTO) 0.2 % (0.0-5.0); EOSINOPHILS # (AUTO) 0.01 K/uL (0.00-0.70); EOSINOPHILS % (AUTO) 0.1 % (0.0-8.0); HEMATOCRIT 41.2 % (42-54); IMMATURE GRANULOCYTE ABSOLUTE 0.04 K/uL (0-1); LYMPHOCYTES # (AUTO) 1.8 K/uL (1.0-4.8); LYMPHOCYTES % (AUTO) 14.6 % (21.0-51.0); MEAN CORPUSCULAR HEMOGLOBIN 27.7 pg (27.0-33.0); MEAN CORPUSCULAR HGB CONC 32.8 g/dL (32.0-36.0); MEAN CORPUSCULAR VOLUME 84.4 fL (79-99); MONOCYTES # (AUTO) 0.7 K/uL (0.1-1.0); MONOCYTES % (AUTO) 5.7 % (3.0-13.0); NEUTROPHILS # (AUTO) 9.7 K/uL (1.8-7.7); NEUTROPHILS % (AUTO) 79.1 % (40.0-77.0); PLATELET COUNT (AUTO) 224 K/uL (130-400); RED BLOOD CELL COUNT(AUTO) 4.88 MIL/uL (4.50-6.20); RED CELL DISTRIBUTION WIDTH 14.6 % (11.0-15.5); WHITE BLOOD COUNT (AUTO) 12.2 K/uL (4.8-10.8)
[2024-04-28 04:03] LABS: ALBUMIN 3.3 g/dL (3.5-5.0); BILIRUBIN,TOTAL 0.6 mg/dL (0.2-1.0); CREATININE 1.8 mg/dL (0.5-1.3); MAGNESIUM 2.2 mg/dL (1.80-2.40); TOTAL PROTEIN, SERUM 7.2 g/dL (6.0-8.3)
--- NOTE | 2024-04-28 07:10 | PN ---
[facility] Cardiology Progress Note CARDIOLOGY PROGRESS NOTE APRIL 28, 2024 Problems: 1. Acute on chronic systolic heart failure BNP level of 2100 on admission. 2. Possible remote myocardial infarction in 2012 in the setting of hospitalization for angioedema secondary to benazepril 3. Ischemic cardiomyopathy with LV ejection fraction of 25-30% 4. History of angio edema with benazepril. 5. Remote CVA 2014 Patient has diuresed another 1100 cc in the last 24 hours. Intake however was 1700. We will ask nursing staff to enforce the fluid restriction. Weight is down about 2.5 kilos. Blood pressure is 140/50 heart rate is in the 80s the patient is afebrile. White count 43901 hemoglobin 13.5 platelet count [id number]. Potassium 0.0 BUN 42 creatinine 1.8 Up from 36 and 1.5. The patient continues on aspirin atorvastatin antibiotics Lovenox famotidine furosemide 20 mg IV q.12 hours hydralazine insulin scale isosorbide mononitrate metoprolol succinate potassium. Solu-Medrol was discontinued. The patient continues to be troubled with anxiety. His breathing has improved. His lungs are clear to auscultation. We will proceed with a Lexiscan Cardiolite stress test today for further risk stratification. We will switch from IV furosemide to oral furosemide given his rising creatinine. We will repeat his creatinine again tomorrow. JEY MARTINEZ MD Apr 28, 2024 07:10
--- NOTE | 2024-04-28 08:10 | PN ---
[facility] PROGRESS NOTE Date of Service: Apr 28, 2024 Time of Service: 08:10 SUBJECTIVE: [ ] admission date: 04/25/24 PCP: no PCP This is a 53-year-old male the presents in ER with chief complaints of shortness a breath associated with atypical chest pain triggered by allergens patient reports he has been cleaning his parents home for several days and reports he has been exposed to heavy dust. Shortness a breath has been going on for a week and gradually worsen today, severity moderate to severe aggravated activity, alleviating factor rest. Associated symptoms chest discomfort, swelling to lower extremities. Patient has not be seen by machine builder's for several years.the patient reports having heart failure will get BNP, no recent echo, Reports having a MS in 2014. 04/27/24: Patient is seen and examined with Dr. Wilcox patient remains in ED 14, will be transfer to Med surg. Patient's vascular congested :fluid overload BNP: 2100 patient will be started on Lasix 20 mg IV b.i.d.. 2D echo pending machine builder consulted strep test negative. 04/27/24 patient was seen and examined patient was seen by machine builder's. 2D echo showed EF of 25-30% with mild mitral regurgitation. No pericardial effusion. Hypokinesis of the anterior wall septal and apical drummond noted consistent with his history of myocardial infarction. He will continue to diurese patient. Continue hours of IV diuresis he will consider a Lexiscan stress test in the next48 hours.. Creatinine remains the same 1.5 b ring nut process helper's on. Leukocytosis most likely secondary to IV steroids we will taper. 04/28/2024. Patient is scheduled for a Lexiscan today. Continues with diuresis with Lasix 20 mg twice a day b.i.d.. Patient was instructed on fluid restriction no chest pain events overnight. We will follow-up resultsand we will proceed with machine builder's recommendations. REVIEW OF SYSTEMS CONSTITUTIONAL: Denies fevers, chills, or night sweats. No unintentional weight loss reported. NEUROLOGICAL: Denies headache, amaurosis fugax, motor weakness, sensory deficit, vertigo/spinning sensation, gait abnormalities, or tremors. ENT: No hearing loss, otalgia, otorrhea, rhinitis, rhinorrhea, hoarseness, or sore throat. CARDIOVASCULAR: Denies any exertional angina, dyspnea on exertion, orthopnea, paroxysmal nocturnal dyspnea, palpitations, life-threatening arrhythmias, claudication. PULMONARY: Denies any shortness of breath, cough, phlegm/sputum, hemoptysis, pleuritic chest pain. SLEEP: Denies morning headaches, daytime somnolence or napping. Denies difficulty falling asleep, staying asleep, waking from sleep. Denies knowledge of snoring. GASTROINTESTINAL: Denies any type of dysphagia to either liquids or solids. Denies nausea, vomiting, pyrosis, early satiety, abdominal pain, diarrhea, constipation, or changes in stool consistency or caliber. Denies coffee-ground emesis, hematemesis, hematochezia, or melanotic stools. GENITOURINARY: Denies frequency, urgency, nocturia, hematuria or incontinence (Storage/Irritative symptoms.) Low urinary stream, straining to void, urinary intermittency or hesitancy, splitting of the voiding stream, terminal dribbling. ENDOCRINOLOGIC: Denies polyuria, polydipsia, polyphagia or heat/cold intolerances. HEMATOLOGIC: Denies thrombophilia/previous clots, or coagulopathy/bleeding disorders. ONCOLOGIC: Denies personal history of malignancy. DERMATOLOGIC: Denies rashes or pruritus. PSYCHIATRIC: Denies any suicidal or homicidal ideation. Denies hallucinations. PHYSICAL EXAM GENERAL APPEARANCE: The patient is awake, alert, and oriented, in no acute cardiopulmonary distress. NEUROLOGICAL: Cranial nerves II-XII grossly intact. Motor is 5/5 in bilateral upper and lower extremities proximal to distal. No sensory deficits. HEENT: Face is symmetric. Pupils are equal and reactive. Extraocular movements are intact. NECK: Supple. No JVD. No thyromegaly. No submental, submandibular, pre- /postauricular, occipital or supraclavicular lymphadenopathy. CHEST: Normal chest expansion. No Telemetry. LUNGS: Absence of any rales, rhonchi or any wheezing. CARDIOVASCULAR: Regular. S1 and S2 normal. No appreciable rubs, murmurs or gallops. ABDOMEN: Soft, nontender, and nondistended. There is no rebound, voluntary guarding, or rigidity. : Deferred. No [place]. EXTREMITIES: Non-edematous and not cyanotic. No clubbing. Good capillary refill. SKIN: No skin breakdown. Vital Signs (last 8hr) Date Time Temp Pulse Resp B/P (MAP) Pulse Ox O2 Delivery O2 Flow Rate FiO2 04/28/24 07:56 98.1 82 18 140/52 96 Room Air 04/28/24 07:14 68 18 04/28/24 03:50 98.1 85 22 138/48 97 Room Air 04/28/24 00:50 97.9 95 22 134/88 97 Room Air LABS: Laboratory: Test 04/28/24 06:28 04/28/24 03:37 04/27/24 10:13 Range/Units Whole Blood Glucose 150 H 70-110 MG/DL White Blood Count 12.2 H 4.8-10.8 K/uL Red Blood Count 4.88 4.50-6.20 MIL/uL Hemoglobin 13.5 L 14.0-18.0 g/dL Hematocrit 41.2 L 42-54 % Mean Corpuscular Volume 84.4 79-99 fL Mean Corpuscular Hemoglobin 27.7 27.0-33.0 pg Mean Corpuscular Hemoglobin Concent 32.8 32.0-36.0 g/dL Red Cell Distribution Width 14.6 11.0-15.5 % Platelet Count 224 130-400 K/uL Mean Platelet Volume 9.4 7.5-10.5 fL Immature Granulocyte % (Auto) 0.3 0-1 % Neutrophils (%) (Auto) 79.1 H 40.0-77.0 % Lymphocytes (%) (Auto) 14.6 L 21.0-51.0 % Monocytes (%) (Auto) 5.7 3.0-13.0 % Eosinophils (%) (Auto) 0.1 0.0-8.0 % Basophils (%) (Auto) 0.2 0.0-5.0 % Neutrophils # (Auto) 9.7 H 1.8-7.7 K/uL Lymphocytes # (Auto) 1.8 1.0-4.8 K/uL Monocytes # (Auto) 0.7 0.1-1.0 K/uL Eosinophils # (Auto) 0.01 0.00-0.70 K/uL Basophils # (Auto) 0.03 0.00-0.20 K/uL Absolute Immature Granulocyte (auto 0.04 0-1 K/uL Nucleated Red Blood Cells 0.0 0.0-0.19 % Sodium Level 144 136-145 mmol/L Potassium Level 4.0 3.5-5.1 mmol/L Chloride Level 104 101-111 mmol/L Carbon Dioxide Level 30 21-32 mmol/L Blood Urea Nitrogen 42 H 7-18 mg/dL Creatinine 1.8 H 0.5-1.3 mg/dL Glomerular Filtration Rate Calc 44 >90 mL/min Random Glucose 152 H 70-105 mg/dL Total Calcium 8.9 8.5-10.1 mg/dL Magnesium Level 2.20 1.80-2.40 mg/dL Total Bilirubin 0.6 0.2-1.0 mg/dL Aspartate Amino Transf (AST/SGOT) 23 10-37 U/L Alanine Aminotransferase (ALT/SGPT) 29 12-78 U/L Alkaline Phosphatase 80 50-136 U/L Total Protein 7.2 6.0-8.3 g/dL Albumin 3.3 L 3.5-5.0 g/dL Urine Color LIGHT-YELLOW YELLOW Urine Appearance CLEAR CLEAR Urine pH 5.5 5.0-8.0 Urine Specific [place] 1.016 1.001-1.031 Urine Protein NEGATIVE NEGATIVE mg/dL Urine Glucose (UA) NEGATIVE NEGATIVE mg/dL Urine Ketones NEGATIVE NEGATIVE mg/dL Urine Occult Blood NEGATIVE NEGATIVE Urine Nitrate NEGATIVE NEGATIVE Urine Bilirubin NEGATIVE NEGATIVE mg/dL Urine Urobilinogen 0.2 0.2-1.0 mg/dL Urine Leukocyte Esterase NEGATIVE NEGATIVE Syeda/uL Current Medications Medications (Trade) Dose Ordered Sig/Crow Route PRN Reason Start Time Stop Time Status Last Admin Dose Admin Acetaminophen (TYLenol 325MG TAB) 650 mg Q4H PRN PO TEMPERATURE GREATER THAN 101.5 04/25/24 16:30 05/25/24 16:29 04/27/24 02:45 650 MG Albuterol (DUOneb) 1 UDVIAL Q6H PRN IH SHORTNESS OF BREATH 04/25/24 16:30 05/25/24 16:29 04/27/24 06:55 1 UDVIAL Alprazolam (XANax 0.25MG) 0.25 mg TID PRN PO ANXIETY 04/27/24 07:00 05/27/24 06:59 04/27/24 21:17 0.25 MG Amlodipine Besylate (NorvASC 5MG TAB) 5 mg DAILY PO 04/26/24 09:00 04/26/24 14:27 DC 04/26/24 09:55 5 MG Aspirin (Aspirin 81mg Ec Tab) 81 mg DAILY PO 04/26/24 09:00 05/26/24 08:59 04/27/24 09:17 81 MG Atorvastatin Calcium (LIPItor 10MG) 10 mg HS PO 04/25/24 21:00 05/25/24 20:59 04/27/24 21:17 10 MG Azithromycin 250 ml @ 250 mls/hr Q24H IVPB 04/25/24 16:30 04/26/24 19:09 DC 04/26/24 16:15 250 MLS/HR Budesonide (Pulmicort 0.5 Mg/2ml) 0.5 mg BIDRESP IH 04/26/24 06:00 05/26/24 05:59 04/28/24 07:13 0.5 MG Ceftriaxone Sodium (ROCEphine 1G INJ) 1 gm Q12H IVPB 04/26/24 08:00 04/26/24 19:05 DC 04/26/24 09:56 1 GM Ceftriaxone Sodium (ROCEphine 1G INJ) 1 gm Q24H IVPB 04/25/24 22:30 04/26/24 07:58 DC 04/25/24 22:56 1 GM Doxycycline Hyclate 250 ml @ 125 mls/hr Q12H IV 04/26/24 19:30 05/06/24 19:29 04/27/24 19:35 125 MLS/HR Enoxaparin Sodium (Lovenox) 40 mg DAILY SQ 04/27/24 09:00 05/27/24 08:59 04/27/24 09:17 40 MG Famotidine (Pepcid 20mg Tab) 20 mg BID PO 04/25/24 21:00 05/25/24 20:59 04/27/24 21:16 20 MG Furosemide (LASix 20MG TAB) 20 mg BID@09,17 PO 04/28/24 09:00 05/28/24 08:59 Furosemide (LASix 20MG VIAL) 20 mg Q12H IV 04/26/24 09:00 04/28/24 07:13 DC 04/27/24 21:17 20 MG Hydralazine HCl (APRESOLine 10MG TAB) 10 mg TID PO 04/26/24 21:00 04/28/24 07:13 DC 04/27/24 21:16 10 MG Hydralazine HCl (APRESOLine 20MG INJ) 5 mg Q4H PRN IV ADMINISTER FOR SBP > 160 04/25/24 17:00 05/25/24 16:59 Hydralazine HCl ([id number] TAB) 25 mg TID PO 04/28/24 09:00 05/28/24 08:59 Hydroxyzine HCl (ATArax 25MG TAB) 25 mg Q6H6 PRN PO ANXIETY 04/26/24 20:30 04/27/24 06:39 DC 04/27/24 05:01 25 MG Insulin Human Regular (humuLIN R 100 UNIT/ML 3ML) INSULIN SLIDING SCAL... ACHS SQ 04/25/24 16:30 05/25/24 16:29 04/27/24 21:21 6 UNIT Isosorbide Mononitrate (Imdur 30mg Sr) 30 mg DAILY PO 04/27/24 09:00 05/27/24 08:59 04/27/24 13:08 30 MG Lactated Ringer's 1,000 ml @ 75 mls/hr [id number] IV 04/26/24 09:00 04/26/24 19:04 DC 04/26/24 09:57 75 MLS/HR Lisinopril (Prinivil 20mg) 20 mg DAILY PO 04/26/24 09:00 04/25/24 19:43 DC Magnesium Sulfate 50 ml @ 0 mls/hr PROTOCOL PRN IV low mag level 04/25/24 16:30 05/25/24 16:29 04/27/24 06:18 25 MLS/HR Methylprednisolone Sodium Succinate (Solu-medROL 40MG) 40 mg DAILY IVP 04/28/24 09:00 04/28/24 02:21 DC Methylprednisolone Sodium Succinate (Solu-medROL 40MG) 40 mg Q12H9 IVP 04/25/24 21:00 04/27/24 09:17 DC 04/26/24 20:55 40 MG Methylprednisolone Sodium Succinate (Solu-medROL 40MG) 40 mg Q8H IVP 04/25/24 16:30 04/25/24 16:31 DC Metoprolol Succinate (TopROL XL) 25 mg DAILY PO 04/27/24 09:00 04/27/24 06:17 DC Metoprolol Succinate (TopROL XL) 50 mg DAILY PO 04/27/24 09:00 04/28/24 07:13 DC 04/27/24 09:16 50 MG Metoprolol Succinate (TopROL XL) 100 mg DAILY PO 04/28/24 09:00 05/28/24 08:59 Montelukast Sodium (SinguLAIR) 10 mg HS PO 04/25/24 21:00 05/25/24 20:59 04/27/24 21:17 10 MG Nitroglycerin (Nitrostat) 0.4 mg AD PRN SL CHEST PAIN 04/25/24 17:00 05/25/24 16:59 Ondansetron HCl (zoFRAN 4MG INJ) 4 mg Q6H PRN IVP NAUSEA/VOMITING 04/25/24 16:30 05/25/24 16:29 Piperacillin Sod/ Tazobactam Sod (Zosyn 3.375gm+NS 50ml) 3.375 gm Q8H IV 04/26/24 19:30 04/26/24 20:47 DC Piperacillin Sod/ Tazobactam Sod (Zosyn 3.375gm+NS 50ml) 3.375 gm Q8H6 IV 04/26/24 22:00 05/06/24 21:59 04/28/24 05:54 3.375 GM Potassium Chloride 100 ml @ 100 mls/hr AD PRN IV POTASSIUM PROTOCOL 04/25/24 16:30 05/25/24 16:29 Potassium Chloride (K-Dur/Klor-Con 20meq) 20 meq AD PRN PO POTASSIUM PROTOCOL 04/25/24 16:30 05/25/24 16:29 Potassium Chloride (KCl 10% Elixir 20meq/15ml) 20 meq AD PRN PO POTASSIUM PROTOCOL 04/25/24 16:30 05/25/24 16:29 Regadenoson (Lexiscan) 0.4 mg ONCE IVP 04/28/24 08:30 04/29/24 08:29 Thiamine HCl (Vitamin B-1) 100 mg DAILY PO 04/26/24 09:00 05/26/24 08:59 04/27/24 09:16 100 MG DIAGNOSTICS / RADIOLOGY: [ ] ASSESSMENT: Acute on chronic systolic heart failure EF 25-30% POA Ischemic cardiomyopathy with LV ejection fraction of 25-30% POA Acute Resp failure with hypoxia POA Small left and [id number]-szjymwim right pleural effusion i suspected bronchitis POA acute chf exacerbation unknown EF% POA Atypical chest pain POA suspecting costochondritis POA uncontrolled HTN POA Active depression POA KIRAN ATN supecting cardiorenal syndrome Leukocytosis most likely to IV steroids. Chronic problems: HTN, HLD CHF: not on current medication management only baby asa take it when he remembers. PLAN: [ ] admit to [facility] weight loss sales consultant: Pulmologist: machine builder diet: regular ABT's; Azithromycin 500 mg IV daily and Rocephin 1 gm Q 12hr Discontinue IV steroids ; DuoNeb as needed Scheduled for Lexiscan this morning. [employer] Structure Builder And Servicer's following started the patient on Imdur.avoid DIXIE inhibitors and ARB use continue with diuresis p.o. Lasix. We will change to spironolactone upon discharge. fluid restriction 1500 ml/hr, Lasix 20 mg iV bid Nitroglycerin 0.4 mg SL as directed Fruit Harvest Worker consulted avoid NSAIDs strict I&Os DVT-GI ppx replace electrolytes as needed basis per protocol RN pending to reviewed home medications PT services to eval and treat. PRN: MEDICATIONS Tylenol 650 mg po every 4 hrs for fever Zofran 4 mg IV every 6 hrs for n/v Hydralazine 10 mg IV every 4 hrs systolic pressure > 160 Supportive measures: DVT ppx, GI ppx all questions answered Supervising MD: Dr. Tee c/d agreed with plan of care. ATTESTATION BY PHYSICIAN I have seen and examined the patient. I reviewed the documentation, medical d ecision making, and treatment plan as noted by the mid-level provider above. I agree with the findings and plan of care. Nicole Tee MD, ELIZABETH NP Apr 28, 2024 08:10
[2024-04-28] MEDS: metOPROLol sucCINATE 50 MG TAB.SR.24H PO SCH (08:30)
[2024-04-28] MEDS: furoSEMIDE 20 MG TABLET PO SCH (08:31)
[2024-04-28] MEDS: hydrALAZine 25MG TABLET PO SCH (09:00)
[2024-04-28] MEDS ORDERED: Solu-medROL 40MG VIAL IVP SCH (09:00)
[2024-04-28] MEDS: REGADENOSON 0.4 MG/5 ML PF SYG IVP SCH (15:51)
--- NOTE | 2024-04-28 18:18 | PN ---
SUBJECTIVE: A 53-year-old male with a history of hypertension and coronary artery disease. The patient initially admitted with underlying chest pain. He has had acute on chronic renal dysfunction in the hospital. Creatinine has been elevated. The patient has a history of known severe cardiomyopathy. He remains on the diuretics. The patient is scheduled for a stress test later today and the patient is being seen as a followup visit for all of the above. REVIEW OF SYSTEMS: GENERAL: He is feeling weak and tired. HEENT: No change in vision. No change in hearing. CARDIOVASCULAR: There is no current chest pain or palpitations. PULMONARY: No shortness of breath. GASTROINTESTINAL: He is tolerating a diet. MUSCULOSKELETAL: Complains of weakness. PHYSICAL EXAMINATION: VITAL SIGNS: Blood pressure 125/86, pulse in the 70s. GENERAL: He is a chronically ill male, older than appearing. HEENT: Head is atraumatic. Pupils equal, roving to light. Oropharynx is without exudate. Nares clear. NECK: There is no JVP. There is no thyromegaly, no mass. CARDIOVASCULAR: Regular. There is no S3, S4 gallop. LUNGS: Coarse with equal thoracic movement. ABDOMEN: Soft, nondistended, nontender. EXTREMITIES: Reveal no clubbing, no cyanosis. NEUROLOGIC: He is awake. He is alert. LABORATORY DATA: Sodium 144, potassium is 4, BUN 42, creatinine 1.8. Hemoglobin 13, hematocrit 41, white count is 12,000. IMPRESSION: * Acute on chronic renal failure. * Cardiomyopathy. * Hypertension. * Electrolyte abnormalities. * Diabetes mellitus. PLAN: The patient does have underlying renal dysfunction. Creatinine has remained fairly stable. The patient does have severe cardiomyopathy. He remains on the diuretics. The patient's workup is ongoing per Cardiology. The patient is scheduled for a stress test later today. We will continue to follow labs closely. Once the patient is discharged, the patient will follow up in the [facility]. TID: [id number] RECEIPT: [id number]
--- NOTE | 2024-04-28 18:35 | PN ---
[facility] PROGRESS NOTE Date Patient Seen: Apr 28, 2024 Time of Visit: 18:31 Supervising Physician: Dr. Bartholomew Consulting Care Physician: Dr Wilcox Outpatient Specialists: [ ] Inpatient Consults: Dr Muir , Cardiology, Dr. Bartholomew PROBLEM LIST: Acute hypoxic respiratory failure, POA Community-acquired pneumonia, POA CURB 65 1 (Low risk group: 2.7% 30-day mortality) Bilateral small pleural effusion with bilateral lobe atelectasis, POA Acute On Chronic Systolic Heart Failure With ICM Ef Of 25-30%, POA ON 2D ECHO 04/26/24 Acute renal failure COPD in acute exacerbation, POA Hypertension, POA DM type 2, with hyperglycemia, POA History of angioedema with benazepril (avoid DIXIE inhibitors and ARBS) PLAN: Continue scheduled neb treatment Pulmonary toilet Continue Zosyn and doxycycline. Incentive spirometry 2D echo 25-30% EF ICM Treat fever aggressively Monitor temperature curve Smoking cessation Wean steroids as tolerated Telemetry monitoring Continue Lasix 20 mg IV q.12 hours Avoid DIXIE inhibitors and ARBS due to history of angioedema INTERVAL HISTORY: 04/28 patient is up ambulating in the room not in acute distress. He is on room air with saturation oxygen of 98%. He denies shortness of breath. Patient has chest tightness at times but he is pending for Lexiscan test today. His creatinine is up slightly to 1.8 continue to monitor this. Avoid nephrotoxin. Continue with current regimen antibiotic and weaned off steroids. From critical and pulmonary standpoint he is stable, we will be on standby. REVIEW OF SYSTEMS: General: No malaise or fever. Neurological: No fainting episodes or seizures. HEENT: No nasal congestion or nasal secretion. Respiratory: Reports breathing much better. Cardiac: No chest pain or palpitations. Gastrointestinal: No vomiting or diarrhea. Genitourinary: No dysuria hematuria. Skin: No rashes or lesions. Hematological: No bruises or bleeding. Musculoskeletal: No joint pains or arthralgias. Psychiatric: No depression or panic attacks. PHYSICAL EXAM: GENERAL: alert, weak, awake oriented x 3, mildly tachypneic on O2 therapy HEENT: EOMI, Sclera non icteric, moist mucosa NECK: Supple, no JVD, trachea midline LUNGS: Audible wheezing bilaterally HEART: Regular rate and rhythm. Normal S1 and S2, without murmurs ABD: Abdomen soft, nontender. Bowel sounds present EXT: No clubbing cyanosis 2+ pitting edema bilateral lower extremity NEURO: Alert and oriented to person, follows commands Vital Signs (last 8hr) Date Time Temp Pulse Resp B/P (MAP) Pulse Ox O2 Delivery O2 Flow Rate FiO2 04/28/24 18:07 97.9 81 16 130/78 96 Room Air 04/28/24 12:11 98.1 74 16 125/86 98 Room Air LABS: Hematology Labs: Test 04/28/24 03:37 Range/Units White Blood Count 12.2 H 4.8-10.8 K/uL Red Blood Count 4.88 4.50-6.20 MIL/uL Hemoglobin 13.5 L 14.0-18.0 g/dL Hematocrit 41.2 L 42-54 % Mean Corpuscular Volume 84.4 79-99 fL Mean Corpuscular Hemoglobin 27.7 27.0-33.0 pg Mean Corpuscular Hemoglobin Concent 32.8 32.0-36.0 g/dL Red Cell Distribution Width 14.6 11.0-15.5 % Platelet Count 224 130-400 K/uL Mean Platelet Volume 9.4 7.5-10.5 fL Immature Granulocyte % (Auto) 0.3 0-1 % Neutrophils (%) (Auto) 79.1 H 40.0-77.0 % Lymphocytes (%) (Auto) 14.6 L 21.0-51.0 % Monocytes (%) (Auto) 5.7 3.0-13.0 % Eosinophils (%) (Auto) 0.1 0.0-8.0 % Basophils (%) (Auto) 0.2 0.0-5.0 % Neutrophils # (Auto) 9.7 H 1.8-7.7 K/uL Lymphocytes # (Auto) 1.8 1.0-4.8 K/uL Monocytes # (Auto) 0.7 0.1-1.0 K/uL Eosinophils # (Auto) 0.01 0.00-0.70 K/uL Basophils # (Auto) 0.03 0.00-0.20 K/uL Absolute Immature Granulocyte (auto 0.04 0-1 K/uL Nucleated Red Blood Cells 0.0 0.0-0.19 % Chemistry Labs: Test 04/28/24 17:17 04/28/24 03:37 Range/Units Whole Blood Glucose 188 #H 70-110 MG/DL Sodium Level 144 136-145 mmol/L Potassium Level 4.0 3.5-5.1 mmol/L Chloride Level 104 101-111 mmol/L Carbon Dioxide Level 30 21-32 mmol/L Blood Urea Nitrogen 42 H 7-18 mg/dL Creatinine 1.8 H 0.5-1.3 mg/dL Glomerular Filtration Rate Calc 44 >90 mL/min Random Glucose 152 H 70-105 mg/dL Total Calcium 8.9 8.5-10.1 mg/dL Magnesium Level 2.20 1.80-2.40 mg/dL Total Bilirubin 0.6 0.2-1.0 mg/dL Aspartate Amino Transf (AST/SGOT) 23 10-37 U/L Alanine Aminotransferase (ALT/SGPT) 29 12-78 U/L Alkaline Phosphatase 80 50-136 U/L Total Protein 7.2 6.0-8.3 g/dL Albumin 3.3 L 3.5-5.0 g/dL DIAGNOSTICS / RADIOLOGY RESULTS: [ ] PLAN: Continue scheduled neb treatment Pulmonary toilet Continue Zosyn and doxycycline. Incentive spirometry 2D echo 25-30% EF ICM Treat fever aggressively Monitor temperature curve Smoking cessation Initiate CIWA protocol Rest of plan care of primary Telemetry monitoring Continue Lasix 20 mg IV q.12 hours for the next 24 hrs Avoid DIXIE inhibitors and ARBS Prophylaxis: Continue GI and DVT prophylaxis Pepcid and Lovenox Code Status: Full Resuscitation Disposition: Per primary. Other: Total patient care time exceeds 35 minutes excluding all procedures. SANDIE SHEPHERD STACK ATTENDANT Apr 28, 2024 18:35
[2024-04-29 00:54] VITALS: BP 141/92; PULSE 66; RESP 18; TEMP 98.5
[2024-04-29 01:17] VITALS: PULSE 78; RESP 18
[2024-04-29] MEDS: BENZOCAINE/MENTH/CETYLPYRD CL 1 EACH LOZENGE MM PRN (01:25)
[2024-04-29] MEDS: LORazepam 2 MG/ML 1 ML VIAL IM ONE (02:03)
[2024-04-29 04:00] LABS: CREATININE 1.6 mg/dL (0.5-1.3); POTASSIUM 3.9 mmol/L (3.5-5.1)
[2024-04-29 04:54] VITALS: BP 143/104; PULSE 86; RESP 18; TEMP 98.6
[2024-04-29] MEDS: ZOSYN 3.375GM+NS 50ML 50 ML ONE (05:38)
--- NOTE | 2024-04-29 06:10 | HMCSR ---
APPROVED REPORT TEST INDICATIONS Cardiomyopathy, Congestive Heart Failure The imaging protocol used to acquire images was Rest Tc-99m/stress Tc-99m 1 day Consent: The procedure was explained and understood by the patient. Informerd consent was witnessed SHAYNE Le First, low dose rest was performed then high dose stress. RESTING DATA: The resting ekg shows: NSR Rest SPECT myocardial perfusion imaging was performed in supine position minutes following the intra venous injection of 11 mCi of Tc-99 Sestamibi. Time of rest injection: 1320 Date: 04/28/2024 PHARMACOLOGIC STRESS: Pharmacologic stress test was performed by injecting regadenoson 0.4 mg IV push followed by the intra venous injection of 29 mCi of Tc-99 Sestamibi. Time of stress injection: 1542 Date: 04/28/2024 Heart Rate at time of stress injection: 81 bpm. The images were gated to evaluate regional wall motion and calculate left ventricular ejection fracti on. STRESS DETAILS Reason for Termination: Infusion complete Stress Symptoms: No chest pain or symptoms Max HR Achieved: 85 bpm % of APMHR Achieved: 60 Max Blood Pressure: 160/107 mmHg Stress ECG: NSR Arrhythmia: Yes. rare PVCs in isolation. ST Change: No. Study quality was good. Lung uptake was Normal. Artifact: No artifact LEFT VENTRICLE Size: The left ventricular size is moderately to severely dilated. Systolic Function:The left ventricular systolic function is severely decreased. Wall Motion: There is global hypokinesis of the left ventricle. The left ventricular ejection fraction was calculated to be 22%.TID = 1.06. LV PERFUSION Medium size moderate severity predominently fixed defect at distal inferior segment involving the ape x with mild reversibility. RV Size/Shape Right ventricle appears dilated. IMPRESSION Abnormal nuclear stress test. Global LV Function: Severely reduced Stress ECG Summary: Normal LV Perfusion Summary: Abnormal LV Viability Summary: Potentially viable myocardium Conclusion The left ventricle is dilated. There is global hypokinesis of the left ventricle. Stess EF 22 % Fixed defect at distal inferior segment involving the apex with small area of mild reversibility at t he apex.
[2024-04-29] MEDS: IpraTROPium/alBUTERol SULFATE 3 ML SOLUTION IH ONE (06:36)
[2024-04-29 06:38] VITALS: PULSE 86; RESP 18; O2SAT 99
--- NOTE | 2024-04-29 07:19 | PN ---
[facility] Cardiology Progress Note CARDIOLOGY PROGRESS NOTE APRIL 29, 2024 Problems: 1. Acute on chronic systolic heart failure BNP level of 2100 on admission. 2. Possible remote myocardial infarction in 2012 in the setting of hospitalization for angioedema secondary to benazepril 3. Ischemic cardiomyopathy with LV ejection fraction of 25-30% 4. History of angio edema with benazepril. 5. Remote CVA 2014 Blood pressure this morning is running 140/100 heart rate is in the 80s the patient is afebrile. Yesterday he diuresed 1100 cc but again 1700 cc despite a fluid restriction of 1500 cc. Weight today is pending. Potassium 3.9 BUN 40 creatinine 1.6 with GFR of 51. Down from 1.8 yesterday. Renal function continues to improve. He continues on aspirin atorvastatin doxycycline Lovenox for DVT prophylaxis furosemide was switched to 20 mg p.o. b.i.d. yesterday continues on hydralazine metoprolol succinate and isosorbide mononitrate. Was also receiving potassium protocol and thiamine. I had plan to increase his hydralazine to 50 mg q.8 hours for additional blood pressure control. As an outpatient if his renal function continues to improve we may wish to switch his isosorbide and hydralazine back to an ARB or ARNI. His Lexiscan Cardiolite stress test was reviewed by Dr. Sterling and showed a dilated left ventricle ejection fraction of 22% and fixed inferior wall defect with minimal jaida- infarct ischemia. The patient apparently left AMA this morning. If he is willing to follow up in my office I will see him in 1-2 weeks. JEY MARTINEZ MD Apr 29, 2024 07:19
--- NOTE | 2024-04-29 08:17 | DS ---
Discharge Summary Hospital Course Summary: admission date: 04/25/24 PCP: no PCP This is a 53-year-old male the presents in ER with chief complaints of shortness a breath associated with atypical chest pain triggered by allergens patient reports he has been cleaning his parents home for several days and reports he has been exposed to heavy dust. Shortness a breath has been going on for a week and gradually worsen today, severity moderate to severe aggravated activity, alleviating factor rest. Associated symptoms chest discomfort, swelling to lower extremities. Patient has not be seen by profile trimmer's for several years.the patient reports having heart failure will get BNP, no recent echo, Reports having a ME in 2014. 04/27/24: Patient is seen and examined with Dr. Wilcox patient remains in ED 14, will be transfer to Med surg. Patient's vascular congested :fluid overload BNP: 2100 patient will be started on Lasix 20 mg IV b.i.d.. 2D echo pending profile trimmer consulted strep test negative. 04/27/24 patient was seen and examined patient was seen by profile trimmer's. 2D echo showed EF of 25-30% with mild mitral regurgitation. No pericardial effusion. Hypokinesis of the anterior wall septal and apical drummond noted consistent with his history of myocardial infarction. He will continue to diurese patient. Continue [id number] hours of IV diuresis he will consider a Lexiscan stress test in the next48 hours.. Creatinine remains the same 1.5 bring soft mud molder's on. Leukocytosis most likely secondary to IV steroids we will taper. 04/28/2024. Patient is scheduled for a Lexiscan today. Continues with diuresis with Lasix 20 mg twice a day b.i.d.. Patient was instructed on fluid restriction no chest pain events overnight. We will follow-up results and we will proceed with profile trimmer's recommendations procedure was done after lunch. 04/29/2025 patient left AMA earlier this morning. Lexiscan results showed a dilated left ventricle ejection fraction of 22% and fixed inferior wall defect with minimal jaida-infarct ischemia. [employer]'s Dr. Muir plan to increase his hydralazine to 50 mg every8 hours for additional blood pressure contro lAs an outpatient if his renal function continues to improve we may wish to switch his isosorbide and hydralazine back to an ARB or ARNI. Assessment/Plan: Discharged dx's; Acute on chronic systolic heart failure EF 25-30% POA Ischemic cardiomyopathy with LV ejection fraction of 25-30% POA Acute Resp failure with hypoxia POA Small left and [id number] right pleural effusion i suspected bronchitis POA acute chf exacerbation unknown EF% POA Atypical chest pain POA suspecting costochondritis POA uncontrolled HTN POA Active depression POA KIRAN ATN supecting cardiorenal syndrome Leukocytosis most likely to IV steroids. Chronic problems: HTN, HLD CHF: not on current medication management only baby asa take it when he remembers. PLAN: [ ] Left AMA Home Medications: Reported Medications [No Home Meds Per Pt] No Conflict Check Pt states has taken no home meds in last 1 year due to no PCP. 04/26/24 New Medications: Aspirin (Aspirin 81 Mg Ectab) 81 Mg Ectab 81 MG PO DAILY, #100 TAB.EC 3 Refills Atorvastatin Calcium (Lipitor) 10 Mg Tab 10 MG PO HS, #30 TAB 3 Refills Furosemide (Lasix 20Mg Tab) 20 Mg Tablet 20 MG PO BID@, #60 TAB 3 Refills Hydralazine HCl (Apresoline) 25 Mg Tab 50 MG PO TID, #90 TAB 3 Refills Metoprolol Succinate (Toprol Xl) 50 Mg Tab.er.24h 100 MG PO DAILY, #30 TAB 3 Refills Discontinued Medications: [No Home Meds Per Pt] () Pt states has taken no home meds in last 1 year due to no PCP. Time spent arranging discharge: 31-60 minutes ATTESTATION BY PHYSICIAN I have seen and examined the patient. I reviewed the documentation, medical decision making, and treatment plan as noted by the mid-level provider above. I agree with the findings and plan of care. HARINDER WILCOX MD, ELIZABETH NP Apr 29, 2024 08:17
[2024-04-29] MEDS ORDERED: hydrALAZine 25MG TABLET PO SCH (09:00)
== END 2024-04-29 07:15 | disposition left against medical advice (07) | DRG 291 ==
LOC: EDH 12:49 → 2DH 16:09 → UNDOADMIN 16:09 → EDHIP 16:09 → 2DH 04-26 15:37 → EDHIP 04-26 15:37 → UNDODISIN 04-29 02:42
PROVIDERS: ADMIT Internal Medicine; ATTEND Internal Medicine
DX: I13.0 Hypertensive heart and chronic kidney disease with heart failure and stage 1 through stage 4 chronic kidney disease, or unspecified chronic kidney disease (principal); I50.23 Acute on chronic systolic (congestive) heart failure; J96.01 Acute respiratory failure with hypoxia; N17.0 Acute kidney failure with tubular necrosis; J18.9 Pneumonia, unspecified organism; J44.0 Chronic obstructive pulmonary disease with (acute) lower respiratory infection; J44.1 Chronic obstructive pulmonary disease with (acute) exacerbation; E11.22 Type 2 diabetes mellitus with diabetic chronic kidney disease; E11.65 Type 2 diabetes mellitus with hyperglycemia; E78.00 Pure hypercholesterolemia, unspecified; F32.A Depression, unspecified; F41.9 Anxiety disorder, unspecified; I25.10 Atherosclerotic heart disease of native coronary artery without angina pectoris; I25.5 Ischemic cardiomyopathy; N18.9 Chronic kidney disease, unspecified; R13.10 Dysphagia, unspecified; M94.0 Chondrocostal junction syndrome [Tietze]; J40 Bronchitis, not specified as acute or chronic; T38.0X5A Adverse effect of glucocorticoids and synthetic analogues, initial encounter; T78.3XXA Angioneurotic edema, initial encounter; Z53.29 Procedure and treatment not carried out because of patient's decision for other reasons; I25.2 Old myocardial infarction; Z79.82 Long term (current) use of aspirin; Z86.73 Personal history of transient ischemic attack (TIA), and cerebral infarction without residual deficits; Z79.899 Other long term (current) drug therapy
CPT/HCPCS: 36415; 71045; 71250; 78452; 80048; 80053; 80061; 80305; 81003; 82948; 83735; 83880; 84145; 84443; 84484; 85025; 85027; 86140; 87071; 87086; 87186; 87205; 87804; 87880; 93005; 93017; 93306; 93356; 94640; 94664; 96375; A9500; G0378; J0456; J0696; J1650; J1815; J1940; J2060; J2405; J2543; J2785; J2919; J3475; J3490; J7120